=== PATIENT | female | born 1960 | race Caucasian/White ===

== ENCOUNTER 2018-04-08 23:46 | Emergency (ER) | payer SELFPAY ==
[2018-04-09] MEDS ORDERED: ONDANSETRON 4 MG/2 ML VIAL ONE (00:11)
[2018-04-09] MEDS ORDERED: KETOROLAC 30 MG/ML INJ ONE (00:11)
[2018-04-09] MEDS ORDERED: NA CHLORIDE 0.9% 0 ML ONE (00:11)
[2018-04-09 00:30] LABS: Absolute Lymphocytes (CBC) 5.4 K/uL (0.7-4.9); Absolute Monocytes 0.6 K/uL (0.1-1.3); Absolute Neutrophil 5.7 K/uL (1.8-8.0); Basophils % 0.6 % (0-1.3); Eosinophils % 0.9 % (0-4.4); Hematocrit 42.7 % (36.0-45.0); Lymphocytes % 45.8 % (15.3-44.8); MCH 29.8 pg (27.0-35.0); MCV 86.5 fL (80-100); MPV 10.2 fL (7.6-11.3); Monocytes % 4.9 % (3.3-12.3); RBC Red Blood Cell Count 4.94 M/uL (3.86-4.86)
[2018-04-09 00:44] LABS: Urine Blood 3+ (NEG); Urine Glucose NEGATIVE (NEG); Urine Protein 2+ (NEG); Urine Specific Gravity >1.030 (1.005-1.030); Urine pH 5.5 (5.0-7.0)
[2018-04-09 00:45] LABS: Potassium 3.9 mmol/L (3.5-5.1)
[2018-04-09] MEDS ORDERED: NA CHLORIDE 0.9% 2,000 ML ONE (01:54)
--- NOTE | 2018-04-09 03:08 | EDPHYS ---
Physician Documentation [facility] Name: Gamaliel Myers Age: 57 yrs Sex: Female : 1960 Arrival Date: 04/08/2018 Time: 23:52 Bed 23 Private MD: ED Physician Altaf Reyes HPI: 04/09 00:21 This 57 yrs old Female presents to ER via Ambulatory with complaints of Blood ps1 in urine,nausea,abd pain. 00:21 patient complaining of right flank pain, dysuria, dark colored urine and palpitations. ps1 Decreased oral intake. possible fever. Now urine has blood in it. Pain rated as moderate. No remitting or exacerbating factors. . Historical: - Allergies: 00:13 No Known Allergies; ak1 - Home Meds: 00:13 amlodipine 5 mg tab 1 tab once daily [Active]; buspirone 10 mg Oral tab 1 tab 2 times ak1 per day [Active]; Fish Oil 1,000 mg oral cap [Active]; fluoxetine 20 mg Oral cap 1 cap once daily [Active]; glimepiride 4 mg Oral tab 1 tab 2 times daily [Active]; hydroxyzine HCl 25 mg Oral tab 1 tab 4 times per day [Active]; Lantus 100 unit/mL Sub-Q soln [Active]; levothyroxine 112 mcg tab 1 tab once daily [Active]; lisinopril 20 mg Oral tab 1 tab once daily [Active]; metformin 1,000 mg Oral tr24 2 tabs once daily [Active]; pravastatin 20 mg oral tab 1 tab once daily [Active]; zolpidem 5 mg Oral tab 1 tab once daily [Active]; - PMHx: 00:13 Hypertension; Hyperlipidemia; Anxiety; Hypothyroidism; insomnia; ak1 - PSHx: 00:13 Hysterectomy; Cholecystectomy; Hernia repair; Knee surgery; bilateral thumb sx; heart ak1 cath; - Immunization history:: Adult Immunizations unknown. - Social history:: Smoking status: Patient/guardian denies using tobacco. - Ebola Screening: : No symptoms or risks identified at this time. ROS: 00:21 Positive for urinary symptoms, flank pain, hematuria. ps1 00:21 Eyes: Negative for injury, pain, redness, and discharge, ENT: Negative for injury, pain, and discharge, Respiratory: Negative for shortness of breath, cough, wheezing, and pleuritic chest pain, Abdomen/GI: Negative for abdominal pain, nausea, vomiting, diarrhea, and constipation, Back: Negative for injury and pain, MS/Extremity: Negative for injury and deformity, Skin: Negative for injury, rash, and discoloration. 00:21 Constitutional: Positive for fever, malaise. 00:21 Cardiovascular: Positive for palpitations. Exam: 00:21 Constitutional: This is a well developed, well nourished patient who is awake, alert, ps1 and in no acute distress. Head/Face: Normocephalic, atraumatic. 00:21 ENT: Nares patent. No nasal discharge, no septal abnormalities noted. Tympanic membranes are normal and external auditory canals are clear. Oropharynx with no redness, swelling, or masses, exudates, or evidence of obstruction, uvula midline. Mucous membranes moist. Neck: Trachea midline, no thyromegaly or masses palpated, and no cervical lymphadenopathy. Supple, full range of motion without nuchal rigidity, or vertebral point tenderness. No Meningismus. Chest/axilla: Normal chest wall appearance and motion. Nontender with no deformity. No lesions are appreciated. Respiratory: Lungs have equal breath sounds bilaterally, clear to auscultation and percussion. No rales, rhonchi or wheezes noted. No increased work of breathing, no retractions or nasal flaring. Abdomen/GI: Soft, non-tender, with normal bowel sounds. No distension or tympany. No guarding or rebound. No evidence of tenderness throughout. 00:21 Cardiovascular: Rate: tachycardic, Rhythm: regular, Pulses: no pulse deficits are appreciated. Vital Signs: 00:04 BP 157 / 120; Pulse 124; Resp 20; Temp 98.2(TE); Pulse Ox 97% on R/A; Weight 108.86 kg ak1 (R); Height 5 ft. 5 in. (165.10 cm) (R); Pain 8/10; 01:07 BP 121 / 65; Pulse 93; Resp 18; Pulse Ox 98% on R/A; Pain 2/10; mg2 02:11 BP 122 / 56; Pulse 89; Resp 18; Pulse Ox 95% on R/A; Pain 0/10; mg2 03:38 BP 130 / 60; Pulse 80; Resp 18; Temp 97.8(O); Pulse Ox 99% on R/A; Pain 0/10; ea 00:04 Body Mass Index 39.94 (108.86 kg, 165.10 cm) ak1 MDM: 00:19 Patient medically screened. ps1 03:10 Data reviewed: vital signs, nurses notes, lab test result(s), radiologic studies, CT ps1 scan, and as a result, I will discharge patient. Test interpretation: by ED physician or midlevel provider: CT scan, recently passed stone. . 04/09 00:03 Order name: Basic Metabolic Panel; Complete Time: 00:46 ps1 04/09 00:03 Order name: Blood Culture Adult (2) ps1 04/09 00:03 Order name: CBC with Diff; Complete Time: 00:40 ps1 04/09 00:03 Order name: Lactate; Complete Time: 00:58 ps1 04/09 00:03 Order name: Lipase; Complete Time: 00:46 ps1 04/09 00:03 Order name: Troponin (emerg Dept Use Only); Complete Time: 00:58 ps1 04/09 00:03 Order name: Chest Single View XRAY ps1 04/09 00:03 Order name: Stone Protocol CT ps1 04/09 00:25 Order name: Urine Dipstick--Ancillary (enter results) ms 07 00:25 Order name: Urine Dipstick-Ancillary; Complete Time: 00:45 EDMS 04/09 00:03 Order name: Accucheck; Complete Time: 00:19 ps1 04/09 00:03 Order name: Cardiac monitoring; Complete Time: 00:19 ps1 04/09 00:03 Order name: EKG - Nurse/Tech; Complete Time: 00:19 ps1 04/09 00:03 Order name: IV Saline Lock - Large Bore; Complete Time: 00:18 ps1 04/09 00:03 Order name: Labs collected and sent; Complete Time: 00:18 ps1 04/09 00:03 Order name: O2 Per Protocol; Complete Time: 00:18 ps1 04/09 00:03 Order name: O2 Sat Monitoring; Complete Time: 00:19 ps1 04/09 00:03 Order name: Urine Dipstick-Ancillary (obtain specimen); Complete Time: 00:19 ps1 04/09 00:04 Order name: EKG Strip; Complete Time: 00:20 ps1 EC:11 Rate is 110 beats/min. Rhythm is regular. HI interval is normal. QRS interval is ps1 normal. QT interval is normal. No Q waves. T waves are Normal. No ST changes noted. Clinical impression: Sinus tachycardia and right axis deviation. Interpreted by me. Administered Medications: 00:19 Drug: NS 0.9% (30 ml/kg) 30 ml/kg Route: IV; Rate: bolus; Site: left antecubital; mg2 00:20 Drug: TORadol 30 mg Route: IVP; Site: left antecubital; mg2 01:19 Follow up: Response: No adverse reaction; Pain is decreased mg2 00:20 Not Given (Physician Discretion): Zofran 4 mg PO once mg2 00:21 Drug: Zofran 4 mg Route: IVP; Site: left antecubital; mg2 01:19 Follow up: Response: No adverse reaction; Nausea is decreased mg2 Point of Care Testing: Blood Glucose: 00:30 Blood Glucose: 98 mg/dL; mg2 Ranges: Critical Glucose Levels:Adult <50 mg/dl or >400 mg/dl <40 mg/dl or >180 mg/dl Disposition: 04/09/18 03:07 Discharged to Home. Impression: Renal Stone. , hematuria, hydronephrosis. - Condition is Stable. - Discharge Instructions: Hematuria, Adult, Kidney Stones. - Prescriptions for ketorolac 10 mg Oral tablet - take 1 tablet by ORAL route every 4-6 hours not to exceed 40 mg in 24hrs; 10 tablet. Zofran 4 mg Oral Tablet - take 1 tablet by ORAL route every 12 hours As needed; 20 tablet. - Medication Reconciliation Form, Thank You Letter, Antibiotic Education, Prescription Opioid Use form. - Follow up: Private Physician; When: As needed; Reason: Recheck today's complaints, Continuance of care, Re-evaluation by your physician. Follow up: Josee Munoz MD; When: As needed; Reason: Further diagnostic work-up. Signatures: Dispatcher [employer] EDMary Carmen Soto RN RN ak1 Kaylen Richards RN RN ea Altaf Reyes MD MD ps1 Cresencio Morris RN RN mg2 Corrections: (The following items were deleted from the chart) 03:41 03:07 04/09/2018 03:07 Discharged to Home. Impression: Renal Stone. ; hematuria; ea hydronephrosis. Condition is Stable. Forms are Medication Reconciliation Form, Thank You Letter, Antibiotic Education, Prescription Opioid Use. Follow up: Private Physician; When: As needed; Reason: Recheck today's complaints, Continuance of care, Re-evaluation by your physician. Follow up: Josee Munoz; When: As needed; Reason: Further diagnostic work-up. ps1
--- NOTE | 2018-04-09 03:08 | ER ---
Nurse's Notes [facility] Name: Gamaliel Myers Age: 57 yrs Sex: Female : 1960 Arrival Date: 04/08/2018 Time: 23:52 Bed 23 Private MD: Diagnosis: Renal Stone. ;hematuria;hydronephrosis Presentation: 04/09 00:06 Presenting complaint: Patient states: back pain, abd pain, nausea and blood in urine X2 ak1 days. Transition of care: patient was not received from another setting of care. Onset of symptoms is unknown. Risk Assessment: Do you want to hurt yourself or someone else? Patient reports no desire to harm self or others. Initial Sepsis Screen: Does the patient meet any 2 criteria? Systolic BP < 90 mmHg. HR > 90 bpm. Yes Does the patient have a suspected source of infection? Yes: Dysuria/Frequency/Urgency/UTI. Care prior to arrival: None. 00:06 Method Of Arrival: Ambulatory ak1 00:06 Acuity: DEVENDRA 3 ak1 Triage Assessment: 00:13 General: Appears in no apparent distress. Behavior is calm, cooperative. Pain: ak1 Complains of pain in back and abdomen. Historical: - Allergies: 00:13 No Known Allergies; ak1 - Home Meds: 00:13 amlodipine 5 mg tab 1 tab once daily [Active]; buspirone 10 mg Oral tab 1 tab 2 times ak1 per day [Active]; Fish Oil 1,000 mg oral cap [Active]; fluoxetine 20 mg Oral cap 1 cap once daily [Active]; glimepiride 4 mg Oral tab 1 tab 2 times daily [Active]; hydroxyzine HCl 25 mg Oral tab 1 tab 4 times per day [Active]; Lantus 100 unit/mL Sub-Q soln [Active]; levothyroxine 112 mcg tab 1 tab once daily [Active]; lisinopril 20 mg Oral tab 1 tab once daily [Active]; metformin 1,000 mg Oral tr24 2 tabs once daily [Active]; pravastatin 20 mg oral tab 1 tab once daily [Active]; zolpidem 5 mg Oral tab 1 tab once daily [Active]; - PMHx: 00:13 Hypertension; Hyperlipidemia; Anxiety; Hypothyroidism; insomnia; ak1 - PSHx: 00:13 Hysterectomy; Cholecystectomy; Hernia repair; Knee surgery; bilateral thumb sx; heart ak1 cath; - Immunization history:: Adult Immunizations unknown. - Social history:: Smoking status: Patient/guardian denies using tobacco. - Ebola Screening: : No symptoms or risks identified at this time. Screenin:23 Abuse screen: Denies threats or abuse. Denies injuries from another. Nutritional mg2 screening: No deficits noted. Tuberculosis screening: No symptoms or risk factors identified. Fall Risk IV access (20 points). Assessment: 01:24 General: Appears in no apparent distress. comfortable, Behavior is calm, cooperative. mg2 01:25 Pain: Complains of pain in abdomen and back Pain does not radiate. Pain currently is 2 mg2 out of 10 on a pain scale. Quality of pain is described as aching, Pain began gradually, Is intermittent, Alleviated by rest, Also complains of bloody urine. Neuro: Level of Consciousness is awake, alert, obeys commands, Oriented to person, place, time, situation. Cardiovascular: Capillary refill < 3 seconds Patient's skin is warm and dry. Respiratory: Airway is patent Respiratory effort is even, unlabored, Respiratory pattern is regular, symmetrical. GI: Abdomen is non-distended, Reports lower abdominal pain, nausea. : Reports bloody urine. EENT: No signs and/or symptoms were reported regarding the EENT system. Derm: Skin is intact, Skin is pink, warm \T\ dry. normal. Musculoskeletal: Circulation, motion, and sensation intact. 02:11 Reassessment: Patient appears in no apparent distress at this time. Patient and/or mg2 family updated on plan of care and expected duration. Pain level reassessed. Patient is alert, oriented x 3, equal unlabored respirations, skin warm/dry/pink. 03:40 Reassessment: Patient and/or family updated on plan of care and expected duration. Pain ea level reassessed. Patient is alert, oriented x 3, equal unlabored respirations, skin warm/dry/pink. Discharge instructions given to patient, verbalized the understanding of instruction. Vital Signs: 00:04 BP 157 / 120; Pulse 124; Resp 20; Temp 98.2(TE); Pulse Ox 97% on R/A; Weight 108.86 kg ak1 (R); Height 5 ft. 5 in. (165.10 cm) (R); Pain 8/10; 01:07 BP 121 / 65; Pulse 93; Resp 18; Pulse Ox 98% on R/A; Pain 2/10; mg2 02:11 BP 122 / 56; Pulse 89; Resp 18; Pulse Ox 95% on R/A; Pain 0/10; mg2 03:38 BP 130 / 60; Pulse 80; Resp 18; Temp 97.8(O); Pulse Ox 99% on R/A; Pain 0/10; ea 00:04 Body Mass Index 39.94 (108.86 kg, 165.10 cm) ak1 ED Course: 04/08 23:52 Patient arrived in ED. es 23:59 Altaf Reyes MD is Attending Physician. ps1 04/09 00:04 Arm band placed on Patient placed in an exam room, on a stretcher, Patient notified of ak1 wait time. 00:06 Kathe Walker, VEE is Primary Nurse. kr2 00:07 Triage completed. ak1 00:[address] In Process Unspecified. EDMS 00:52 X-ray completed. Portable x-ray completed in exam room. Patient tolerated procedure kw well. 00:53 Chest Single View XRAY In Process Unspecified. EDMS 00:53 Notified ED physician of a critical lab result(s). lactic acid 2.3. ak1 00:54 CT completed. Patient tolerated procedure well. Patient moved to CT via stretcher. Patient moved back from CT. 01:23 Patient has correct armband on for positive identification. Bed in low position. Side mg2 rails up X2. Door closed. Warm blanket given. 01:28 No provider procedures requiring assistance completed. Inserted saline lock: 20 gauge mg2 in left antecubital area, using aseptic technique. Blood collected. 02:59 Josee uMnoz MD is Referral Physician. ps1 03:07 IV discontinued, intact, bleeding controlled, No redness/swelling at site. Pressure mg2 dressing applied. Administered Medications: 00:19 Drug: NS 0.9% (30 ml/kg) 30 ml/kg Route: IV; Rate: bolus; Site: left antecubital; mg2 00:20 Drug: TORadol 30 mg Route: IVP; Site: left antecubital; mg2 01:19 Follow up: Response: No adverse reaction; Pain is decreased mg2 00:20 Not Given (Physician Discretion): Zofran 4 mg PO once mg2 00:21 Drug: Zofran 4 mg Route: IVP; Site: left antecubital; mg2 01:19 Follow up: Response: No adverse reaction; Nausea is decreased mg2 Point of Care Testing: Blood Glucose: 00:30 Blood Glucose: 98 mg/dL; mg2 Ranges: Outcome: 03:07 Discharge ordered by . ps1 03:39 Discharged to home ambulatory. ea 03:39 Condition: improved 03:39 Discharge instructions given to patient, Instructed on discharge instructions, follow up and referral plans. medication usage, Demonstrated understanding of instructions, follow-up care, medications, Prescriptions given X 2. 03:41 Patient left the ED. ea Signatures: Dispatcher [employer] EDMS Sharyn White Ervin eh Whitley, Kimberlee kw Krenek, Amber RN RN ak1 Kaylen Richards RN RN Kathe Germain RN RN [email or web address] Altaf Reyes MD MD ps1 Gardose, Michele, RN RN mg2 Corrections: (The following items were deleted from the chart) 01:25 01:24 Pain: mg2 mg2 01:28 01:24 Pain: Pain: mg2 mg2
--- NOTE | 2018-04-09 08:30 | RAD REPORT ---
EXAM DESCRIPTION: CT - Stone Protocol - 04/09/2018 4:39 am CLINICAL HISTORY: Flank pain. right flank;Abd pain COMPARISON: No comparisons TECHNIQUE: Axial images were obtained without oral or IV contrast. Lack of contrast limits solid org an and vascular assessment. The [id number] spans the entirety of the system partially obscuring uppermost abdomen and lung bases. Coronal reformatted images were obtained and reviewed. All CT scans are performed using dose optimization technique as appropriate and may include automated exposure control or mA/KV adjustment according to patient size. FINDINGS: The lower lung guerrero are clear. Imaged portions of the liver and spleen show no suspicious findings on non-contrast imaging.Cholecyst ectomy. The pancreas is unremarkable. 18 mm left adrenal adenoma suspected. The right adrenal gland i s normal. No pathologic lymphadenopathy in the abdomen or pelvis. Two abutting stones are noted in the left renal pelvis measuring 6 mm and 5 mm. Mild left hydronephro sis with several parapelvic cysts also likely present on the left. No right-sided stone or hydronephr osis. Right-sided parapelvic renal cysts also suspected. No bowel obstruction, free air, free fluid or abscess. Normal appendix noted.Several small ventral he rnias are present. The inferior-most hernia contains a small section of small intestine without obstr uction or incarceration. Scattered colonic diverticulosis. No significant bony abnormality. IMPRESSION: Left renal pelvis stones are present as detailed resulting in mild left hydronephrosis.
--- NOTE | 2018-04-09 08:32 | RAD REPORT ---
EXAM DESCRIPTION: RAD - Chest Single View - 04/09/2018 12:54 am CLINICAL HISTORY: tachycardia sepsis screen Chest pain. COMPARISON: No comparisons FINDINGS: Portable technique limits examination quality. The lungs are grossly clear. The heart is normal in size. No displaced fractures. IMPRESSION: No acute intrathoracic process suspected.
--- NOTE | 2018-04-09 12:08 | EKG ---
Test Date: 2018-04-09 Test Time: 00:11:05 Penology Professor: ZAIDA MEASUREMENT RESULTS: Intervals: Rate: 110 WY: 168 QRSD: 80 QT: 330 QTc: 446 [place]: P: 39 WY: 168 QRS: 178 T: 27 INTERPRETIVE STATEMENTS: Sinus tachycardia Right axis deviation Low voltage QRS Septal infarct, age undetermined Abnormal ECG No previous ECG available for comparison Electronically Signed On 04-09-18 12:08:00 CDT by Jacob Martinez
== END 2018-04-09 03:41 | disposition home or self-care (01) ==
LOC: ER 23:46
DX: N13.2 Hydronephrosis with renal and ureteral calculous obstruction (principal); I10 Essential (primary) hypertension; E78.5 Hyperlipidemia, unspecified; F41.9 Anxiety disorder, unspecified; E03.9 Hypothyroidism, unspecified
CPT/HCPCS: 36415; 71045; 74176; 76377; 80048; 81003; 82962; 83605; 83690; 84484; 85025; 87040; 93005; 96374; 96375; 99284; J2405; J7030

== ENCOUNTER 2018-10-04 07:33 | Observation (INO) | payer SELFPAY ==
[2018-10-04] MEDS ORDERED: ONDANSETRON 4 MG/2 ML VIAL ONE ×2 (08:42→09:43)
[2018-10-04] MEDS ORDERED: KETOROLAC 30 MG/ML INJ ONE (08:42)
[2018-10-04 08:44] LABS: Absolute Monocytes 0.4 K/uL (0.1-1.3); Absolute Neutrophil 5.5 K/uL (1.8-8.0); Basophils % 2.1 % (0-1.3); Lymphocytes % 24.8 % (15.3-44.8); MPV 10.8 fL (7.6-11.3); Monocytes % 5.4 % (3.3-12.3); RBC Red Blood Cell Count 4.86 M/uL (3.86-4.86)
[2018-10-04 08:59] LABS: Albumin 3.5 g/dL (3.4-5.0); Bilirubin Direct 0.1 mg/dL (0-0.2); Bilirubin Total 0.4 mg/dL (0.2-1.0); Potassium 3.8 mmol/L (3.5-5.1); Protein, Total 6.9 g/dL (6.4-8.2)
[2018-10-04] MEDS ORDERED: MORPHINE 4 MG/ML SYR ONE (09:43)
--- NOTE | 2018-10-04 09:44 | RAD REPORT ---
EXAM DESCRIPTION: CT - Abdomen Pelvis W Contrast - 10/04/2018 9:25 am CLINICAL HISTORY: Abdominal pain left-sided pain. COMPARISON: March 2018 TECHNIQUE: Computed axial tomography of the abdomen pelvis was obtained. 100 cc Isovue-300 was admin istered intravenously. Oral contrast was not requested which limits evaluation of bowel. All CT scans are performed using dose optimization technique as appropriate and may include automated exposure control or mA/KV adjustment according to patient size. FINDINGS: Fatty liver . Spleen, pancreas and right adrenal gland are unremarkable A 20 millimeter left adrenal adenoma unchanged 12 millimeter calculus is present within the left UPJ with stranding in the adjacent fat. Hounsfield unit of the calculus 371. Mild left hydronephrosis. Tiny additional left renal calculus. Small parape lvic renal cysts bilaterally Appendix is normal. There is no evidence of diverticulitis. A umbilical hernia contains a loop of nondilated small bowel. Neck measures 34 millimeters. Additiona l small ventral hernias noted IMPRESSION: 12 millimeter calculus left UPJ resulting in mild left hydronephrosis
[2018-10-04 09:47] LABS: Urine Bacteria 20-50 /HPF (<20); Urine Culture Reflex Order NOT NEEDED
--- NOTE | 2018-10-04 10:05 | EDPHYS ---
Physician Documentation [facility] Name: Gamaliel Myers Age: 58 yrs Sex: Female : 1960 Arrival Date: 10/04/2018 Time: 07:37 Bed 7 Private MD: None, None ED Physician Cayetano Clark HPI: 10/04 08:30 This 58 yrs old Female presents to ER via Wheelchair with complaints of jr8 Abdominal Pain, Back Pain. 08:30 The patient presents with pain that is acute, with no known mechanism of injury. The jr8 symptoms are located in the low back. Onset: The symptoms/episode began/occurred gradually, 1 month(s) ago, and became worse and became persistent. The pain radiates to the abdomen. Associated signs and symptoms: Pertinent positives: nausea. The problem was sustained from unknown cause. Modifying factors: The patient symptoms are alleviated by nothing, the patient symptoms are aggravated by bending. Severity of symptoms: At their worst the symptoms were mild, in the emergency department the symptoms are unchanged. The patient has not experienced similar symptoms in the past. The patient has not recently seen a physician. Has had intermittent back pain and left side and abdominal pain for past month. Now consistent over the past few days . Historical: - Allergies: 08:09 No Known Allergies; iw - Home Meds: 08:09 amlodipine 5 mg tab 1 tab once daily [Active]; Fish Oil 1,000 mg Oral cap daily iw [Active]; fluoxetine 20 mg Oral cap 1 cap once daily [Active]; garlic 1,000 mg oral cap daily [Active]; glimepiride 4 mg Oral tab twice a day [Active]; hydroxyzine HCl 25 mg Oral tab 4 times per day [Active]; lisinopril 20 mg Oral tab 1 tab once daily [Active]; metformin 1,000 mg Oral tab 1 tab 2 times per day [Active]; Vitamin D3 1,000 unit oral tab daily [Active]; zolpidem 5 mg Oral tab 1 tab once daily [Active]; 08:11 levothyroxine 112 mcg tab 1 tab once daily [Active]; iw - PMHx: 08:09 Anxiety; Hyperlipidemia; Hypertension; Hypothyroidism; insomnia; iw 09:58 Diabetes - NIDDM; bp - PSHx: 08:09 Hysterectomy; Cholecystectomy; Hernia repair; Knee surgery; bilateral thumb sx; heart iw cath; - Immunization history:: Adult Immunizations up to date. - Social history:: Smoking status: Patient/guardian denies using tobacco, the patient reports quitting approximately 10 years ago. - Ebola Screening: : Patient negative for fever greater than or equal to 101.5 degrees Fahrenheit, and additional compatible Ebola Virus Disease symptoms Patient denies exposure to infectious person Patient denies travel to an Ebola-affected area in the 21 days before illness onset No symptoms or risks identified at this time. ROS: 08:30 Eyes: Negative for injury, pain, redness, and discharge, ENT: Negative for injury, jr8 pain, and discharge, Neck: Negative for injury, pain, and swelling, Cardiovascular: Negative for chest pain, palpitations, and edema, Respiratory: Negative for shortness of breath, cough, wheezing, and pleuritic chest pain, MS/Extremity: Negative for injury and deformity, Skin: Negative for injury, rash, and discoloration, Neuro: Negative for headache, weakness, numbness, tingling, and seizure. 08:30 Abdomen/GI: Positive for abdominal pain, nausea, diarrhea, Negative for vomiting, abdominal cramps, abdominal distension, anorexia, dysphagia, hematemesis, black/tarry stool, rectal pain, rectal bleeding, bowel incontinence, flatulence. 08:30 Back: Positive for pain at rest, pain with movement, of the left flank, left low back and left mid back. Exam: 08:30 Eyes: Pupils equal round and reactive to light, extra-ocular motions intact. Lids and jr8 lashes normal. Conjunctiva and sclera are non-icteric and not injected. Cornea within normal limits. Periorbital areas with no swelling, redness, or edema. ENT: Nares patent. No nasal discharge, no septal abnormalities noted. Tympanic membranes are normal and external auditory canals are clear. Oropharynx with no redness, swelling, or masses, exudates, or evidence of obstruction, uvula midline. Mucous membranes moist. Neck: Trachea midline, no thyromegaly or masses palpated, and no cervical lymphadenopathy. Supple, full range of motion without nuchal rigidity, or vertebral point tenderness. No Meningismus. Cardiovascular: Regular rate and rhythm with a normal S1 and S2. No gallops, murmurs, or rubs. Normal PMI, no JVD. No pulse deficits. Respiratory: Lungs have equal breath sounds bilaterally, clear to auscultation and percussion. No rales, rhonchi or wheezes noted. No increased work of breathing, no retractions or nasal flaring. Skin: Warm, dry with normal turgor. Normal color with no rashes, no lesions, and no evidence of cellulitis. MS/ Extremity: Pulses equal, no cyanosis. Neurovascular intact. Full, normal range of motion. Neuro: Awake and alert, GCS 15, oriented to person, place, time, and situation. Cranial nerves II-XII grossly intact. Motor strength 5/5 in all extremities. Sensory grossly intact. Cerebellar exam normal. Normal gait. 08:30 Abdomen/GI: Inspection: obese scar(s), are noted in the , Bowel sounds: active, all quadrants, Palpation: soft, in all quadrants, mild abdominal tenderness, in the anterior aspect of left lateral abdomen and left lower quadrant, mass, is not appreciated, rebound tenderness, is not appreciated, voluntary guarding, is not appreciated, involuntary guarding, is not appreciated, no appreciated organomegaly, Indicators: McBurney's point is not tender, Noel's sign is negative, Rovsing's sign is negative, Liver: tenderness, is not appreciated. 08:30 Back: pain, that is mild, of the left low back and left mid back, ROM is painful, normal spinal alignment noted, CVA tenderness, is absent, vertebral tenderness, is not appreciated. Vital Signs: 08:10 BP 157 / 83; Pulse 109; Resp 16; Temp 98; Pulse Ox 95% ; Weight 108.86 kg; Height 5 ft. bp 5 in. (165.10 cm); 08:24 BP 145 / 56; Pulse 96; Resp 14; Pulse Ox 94% ; bp 09:39 BP 149 / 86; Pulse 123; Resp 16; Pulse Ox 95% ; bp 10:24 BP 148 / 73; Pulse 116; Resp 16; Pulse Ox 93% ; bp 11:22 BP 128 / 95; Pulse 104; Resp 18; Pulse Ox 92% ; bp 12:21 BP 118 / 64; Pulse 98; Resp 18; Pulse Ox 93% ; bp 08:10 Body Mass Index 39.94 (108.86 kg, 165.10 cm) bp MDM: 07:48 Patient medically screened. [facility] 10:02 Data reviewed: vital signs, nurses notes, lab test result(s), EKG, radiologic studies, [facility] CT scan, plain films, and as a result, I will admit patient. Data interpreted: Pulse oximetry: on room air is 95 %. Interpretation: acceptable. Counseling: I had a detailed discussion with the patient and/or guardian regarding: the historical points, exam findings, and any diagnostic results supporting the discharge/admit diagnosis, lab results, radiology results, the need for further work-up and treatment in the hospital. ED course: Dr. Munoz consulted and will see patient for stent placement. Wants patient admitted for observation to hospitalist . 10/04 08:10 Order name: Basic Metabolic Panel; Complete Time: 09:05 10/04 08:10 Order name: CBC with Diff; Complete Time: 08:52 10/04 08:10 Order name: Creatinine for Radiology; Complete Time: 09:05 10/04 08:10 Order name: Hepatic Function; Complete Time: 09:05 10/04 08:10 Order name: Lipase; Complete Time: 09:05 10/04 09:12 Order name: Urine Microscopic Only; Complete Time: 09:49 1 10/04 09:05 Order name: CT Abd/Pelvis - W/Contrast; Complete Time: 09:49 10/04 09:12 Order name: Urine Culture 1 10/04 09:20 Order name: Urine Dipstick--Ancillary (enter results); Complete Time: 11:01 ag 10/04 09:53 Order name: XRAY Abdomen 1 View (KUB); Complete Time: 11:11 10/04 09:59 Order name: XRAY Chest (1 view); Complete Time: 11:11 10/04 12:03 Order name: Uric Acid ag 10/04 12:20 Order name: Uric Acid; Complete Time: 12:34 EDMS 10/04 08:10 Order name: IV Saline Lock; Complete Time: 08:23 10/04 08:10 Order name: Labs collected and sent; Complete Time: 08:23 10/04 08:10 Order name: Urine Dipstick-Ancillary (obtain specimen); Complete Time: 09:13 10/04 09:59 Order name: EKG - Nurse/Tech; Complete Time: 10:12 10/04 09:59 Order name: EKG; Complete Time: 10:00 jr8 10/04 10:54 Order name: CONS Physician Consult EDMS Administered Medications: 08:15 Drug: TORadol 30 mg Route: IVP; Site: left antecubital; bp 09:05 Follow up: Response: Pain is decreased bp 08:15 Drug: Zofran 4 mg Route: IVP; Site: left antecubital; bp 09:05 Follow up: Response: Nausea is decreased bp 09:40 Drug: morphine 4 mg Route: IVP; Site: left antecubital; bp 09:55 Follow up: Response: Pain is decreased bp 09:40 Drug: Zofran 4 mg Route: IVP; Site: left antecubital; bp 09:55 Follow up: Response: Nausea is decreased bp 10:15 Drug: Rocephin 1 grams Route: IV; Rate: calculated rate; Site: left antecubital; bp 11:00 Follow up: IV Status: Completed infusion; IV Intake: 10ml bp 10:15 Drug: NS 0.9% 500 ml Route: IV; Rate: bolus; Site: left antecubital; bp 11:00 Follow up: IV Status: Completed infusion bp Disposition: 10/04/18 10:03 Hospitalization ordered by Hayder Guardado for Observation. Preliminary diagnosis is Hydronephrosis with renal and ureteral calculous obstruction. - Bed requested for Telemetry/MedSurg (observation). - Status is Observation. bp - Condition is Stable. - Problem is new. - Symptoms have improved. UTI on Admission? Yes Addendum: 10/08/2018 08:05 Co-signature as Attending Physician, Cayetano Clark MD I agree with the assessment and c garay plan of care. Signatures: Dispatcher [employer] EDDC Cayetano Clark MD MD cha Williams, Irene, RN RN Travon Covington PA PA jr8 Teena Urbina Brian, VEE RN bp Corrections: (The following items were deleted from the chart) 10/04 12:41 10:03 Hospitalization Ordered by Hayder Guardado MD for Observation. Preliminary diagnosis ag is Hydronephrosis with renal and ureteral calculous obstruction. Bed requested for Telemetry/MedSurg (observation). Status is Observation. Condition is Stable. Problem is new. Symptoms have improved. UTI on Admission? Yes. jr8 13:06 12:41 10/04/2018 10:03 Hospitalization Ordered by Hayder Guardado MD for Observation. bp Preliminary diagnosis is Hydronephrosis with renal and ureteral calculous obstruction. Bed requested for Telemetry/MedSurg (observation). Status is Observation. Condition is Stable. Problem is new. Symptoms have improved. UTI on Admission? Yes. ag
--- NOTE | 2018-10-04 10:05 | ER ---
Nurse's Notes [facility] Name: Gamaliel Myers Age: 58 yrs Sex: Female : 1960 Arrival Date: 10/04/2018 Time: 07:37 Bed 7 Private MD: None, None Diagnosis: Hydronephrosis with renal and ureteral calculous obstruction Presentation: 10/04 08:00 Presenting complaint: Patient states: pain radiating from left upper/mid back to iw buttocks, radiates around to left abd area X 1 month, made pain worse a couple days ago after tackling her dog. Transition of care: patient was not received from another setting of care. Onset of symptoms was August 2018. Risk Assessment: Do you want to hurt yourself or someone else? Patient reports no desire to harm self or others. Initial Sepsis Screen: Does the patient meet any 2 criteria? No. Patient's initial sepsis screen is negative. Does the patient have a suspected source of infection? No. Patient's initial sepsis screen is negative. Care prior to arrival: None. 08:00 Method Of Arrival: Wheelchair iw 08:00 Acuity: DEVENDRA 3 iw Triage Assessment: 08:10 General: Appears in no apparent distress. uncomfortable, obese, Behavior is bp cooperative, appropriate for age, anxious. Pain: Complains of pain in left mid back and left low back and left flank. EENT: No deficits noted. Neuro: Level of Consciousness is awake, alert, obeys commands, Oriented to person, place, time, situation, Appropriate for age. Cardiovascular: No deficits noted. Respiratory: Airway is patent Respiratory effort is even, unlabored, Respiratory pattern is regular, symmetrical. GI: Abdomen is non-distended, Reports nausea. : Reports pain in left flank(s). Derm: No deficits noted. Musculoskeletal: Circulation, motion, and sensation intact. Range of motion: intact in all extremities. Historical: - Allergies: 08:09 No Known Allergies; iw - Home Meds: 08: amlodipine 5 mg tab 1 tab once daily [Active]; Fish Oil 1,000 mg Oral cap daily iw [Active]; fluoxetine 20 mg Oral cap 1 cap once daily [Active]; garlic 1,000 mg oral cap daily [Active]; glimepiride 4 mg Oral tab twice a day [Active]; hydroxyzine HCl 25 mg Oral tab 4 times per day [Active]; lisinopril 20 mg Oral tab 1 tab once daily [Active]; metformin 1,000 mg Oral tab 1 tab 2 times per day [Active]; Vitamin D3 1,000 unit oral tab daily [Active]; zolpidem 5 mg Oral tab 1 tab once daily [Active]; 08:11 levothyroxine 112 mcg tab 1 tab once daily [Active]; iw - PMHx: 08:09 Anxiety; Hyperlipidemia; Hypertension; Hypothyroidism; insomnia; iw 09:58 Diabetes - NIDDM; bp - PSHx: 08:09 Hysterectomy; Cholecystectomy; Hernia repair; Knee surgery; bilateral thumb sx; heart iw cath; - Immunization history:: Adult Immunizations up to date. - Social history:: Smoking status: Patient/guardian denies using tobacco, the patient reports quitting approximately 10 years ago. - Ebola Screening: : Patient negative for fever greater than or equal to 101.5 degrees Fahrenheit, and additional compatible Ebola Virus Disease symptoms Patient denies exposure to infectious person Patient denies travel to an Ebola-affected area in the 21 days before illness onset No symptoms or risks identified at this time. Screenin:40 Abuse screen: Denies threats or abuse. Denies injuries from another. Nutritional bp screening: No deficits noted. Tuberculosis screening: No symptoms or risk factors identified. Fall Risk None identified. Assessment: 08:15 General: SEE TRIAGE NOTE. bp 09:00 GI: Bowel sounds present X 4 quads. Abd is soft X 4 quads. bp 09:41 Reassessment: PT RETURNED FROM CT. PER MD, CT SHOWS 3MM STONE. URO C/S PENDING. bp 10:13 Reassessment: LAST PO INTAKE 2300 LAST PM, PT NOW NPO. PT TO CT WITH SENIOR SALES CONSULTANT. ADMIT IN bp PROCESS. 11:22 Reassessment: ADMIT IN PROCESS, VS STABLE ON MONITOR. bp 12:20 Reassessment: PT SEEN BY URO C/S, OR PENDING. bp 13:04 Reassessment: PT VALERIO TO OR WITH RECOVERY NURSE, CONSENT SIGNED AND WITNESSED WITH DR bp TOLENTINO. Vital Signs: 08:10 BP 157 / 83; Pulse 109; Resp 16; Temp 98; Pulse Ox 95% ; Weight 108.86 kg; Height 5 ft. bp 5 in. (165.10 cm); 08:24 BP 145 / 56; Pulse 96; Resp 14; Pulse Ox 94% ; bp 09:39 BP 149 / 86; Pulse 123; Resp 16; Pulse Ox 95% ; bp 10:24 BP 148 / 73; Pulse 116; Resp 16; Pulse Ox 93% ; bp 11:22 BP 128 / 95; Pulse 104; Resp 18; Pulse Ox 92% ; bp 12:21 BP 118 / 64; Pulse 98; Resp 18; Pulse Ox 93% ; bp 08:10 Body Mass Index 39.94 (108.86 kg, 165.10 cm) bp ED Course: 07:37 Patient arrived in ED. mr 07:38 None, None is Private Physician. mr 07:48 Travon Wen PA is PHCP. jr8 07:48 Cayetano Clark MD is Attending Physician. jr8 07:49 Luis Antonio Peña, VEE is Primary Nurse. bp 08:03 Triage completed. iw 08:10 Initial lab(s) drawn, by me, sent to lab. jb1 08:40 Arm band placed on. EKG completed in triage. Results shown to MD. EKG completed in bp triage. Results shown to MD. 08:40 Patient has correct armband on for positive identification. Bed in low position. Call bp light in reach. Side rails up X2. Adult w/ patient. 08:57 Inserted saline lock: 20 gauge in left antecubital area, using aseptic technique. Blood jb1 collected. 09:12 Urine collected: clean catch specimen, cloudy, [place] colored. jb1 09:25 CT Abd/Pelvis - W/Contrast In Process Unspecified. EDMS 10:03 Hayder Guardado MD is Hospitalizing Provider. jr8 10:17 XRAY Abdomen 1 View (KUB) In Process Unspecified. EDMS 10:17 XRAY Chest (1 view) In Process Unspecified. EDMS 13:05 No provider procedures requiring assistance completed. Patient admitted, IV remains in bp place. Administered Medications: 08:15 Drug: TORadol 30 mg Route: IVP; Site: left antecubital; bp 09:05 Follow up: Response: Pain is decreased bp 08:15 Drug: Zofran 4 mg Route: IVP; Site: left antecubital; bp 09:05 Follow up: Response: Nausea is decreased bp 09:40 Drug: morphine 4 mg Route: IVP; Site: left antecubital; bp 09:55 Follow up: Response: Pain is decreased bp 09:40 Drug: Zofran 4 mg Route: IVP; Site: left antecubital; bp 09:55 Follow up: Response: Nausea is decreased bp 10:15 Drug: Rocephin 1 grams Route: IV; Rate: calculated rate; Site: left antecubital; bp 11:00 Follow up: IV Status: Completed infusion; IV Intake: 10ml bp 10:15 Drug: NS 0.9% 500 ml Route: IV; Rate: bolus; Site: left antecubital; bp 11:00 Follow up: IV Status: Completed infusion bp Intake: 11:00 IV: 10ml; Total: 10ml. bp Outcome: 10:03 Decision to Hospitalize by Provider. gisselle 13:05 Admitted to OR accompanied by nurse, family with patient, via stretcher, room OR, with bp chart. 13:05 Condition: stable 13:05 Instructed on the need for admit. 13:06 Patient left the ED. bp Signatures: Dispatcher [employer] EDMS Mitchell Xiong jb1 Avelina Mcnally mr Rani Cruz, RN RN Travon Covington PA PA jr8 Luis Antonio Peña RN RN bp Corrections: (The following items were deleted from the chart) 08:58 08:10 Inserted saline lock: 20 gauge in left antecubital area, using aseptic technique. jb1 Blood collected. bp
[2018-10-04] MEDS ORDERED: NA CHLORIDE 0.9% 500 ML ONE (10:10)
[2018-10-04] MEDS ORDERED: CEFTRIAXONE 1000 MG/VIAL ONE (10:10)
[2018-10-04 10:56] LABS: Urine Blood 3+ (NEG); Urine Glucose NEGATIVE (NEG); Urine Protein 2+ (NEG); Urine Specific Gravity >1.030 (1.005-1.030); Urine pH 5.5 (5.0-7.0)
--- NOTE | 2018-10-04 11:07 | RAD REPORT ---
EXAM DESCRIPTION: Eddy Single View10/04/2018 10:17 am CLINICAL HISTORY: Abdominal pain COMPARISON: March 2018 FINDINGS: The lungs appear clear of acute infiltrate. The heart is normal size IMPRESSION: No acute abnormalities displayed
--- NOTE | 2018-10-04 11:08 | RAD REPORT ---
EXAM DESCRIPTION: RAD - Abdomen 1 View (KUB) - 10/04/2018 10:18 am CLINICAL HISTORY: Abdomen pain. FINDINGS: The bowel gas pattern is unremarkable. Contrast from a recent CAT scan is present within the genitourinary system. Mild left hydronephrosis 12 millimeter filling defect within the left UPJ represents a calculus
[2018-10-04] MEDS ORDERED: NA CHLORIDE 0.9% 1,000 ML ONE (13:06)
--- NOTE | 2018-10-04 13:54 | CON ---
History Of Present Illness: This is a 58-year-old female, who came to the ER with severe left flank pain. Symptoms began in the lower back, and radiates to the abdomen for about a month or so, but it became worse and persistent. She had some nausea. This is the first episode in her life time of anything that resembles a kidney stone. She normally eats lots of meat. She likes steaks and does not drink much water either. CT scan revealed a 12 mm low Hounsfield units 371 with a 12 mm stone in the left UPJ and mild hydronephrosis. She had a KUB about 40 minutes later showing a high-grade obstruction with a stone outlined in the UPJ area. This is suspicious for uric acid stone. Allergies: NO KNOWN DRUG ALLERGIES. Home Medication: Amlodipine, fish oil, fluoxetine, garlic, glimepiride, hydroxyzine, lisinopril, metformin, vitamin D3 1000 units a day, __, levothyroxine 15 . Past Medical History: Anxiety, hyperlipidemia, hypertension, hypothyroidism, insomnia, noninsulin dependent diabetes mellitus. Past Surgical History: Hysterectomy, cholecystectomy, hernia repair, knee surgery, bilateral thumb surgery, heart catheterization. Immunizations: Up-to-date. Social History: Smoking status, denies smoking. Quit 10 years ago. Review of Systems: As per history, otherwise negative. Does have some abdominal pain, nausea as mentioned above. Physical Examination: General: The patient lying in bed comfortable. is present in the room. Vital Signs: 157/83, pulse 109, respirations 16, temperature 97, pulse ox 95% on room air. Weight 108 kg, height 5 feet 5 inches. Body mass index 39.9. HEENT: Atraumatic, normocephalic. Neck: Supple. Lungs: Clear. Heart: S1-S2. Abdomen: Soft. Nontender. Extremities: Normal range of motion. Diagnostic Data: CT scan results as mentioned above. KUB as mentioned above. Laboratory Data: UA shows pH 5.5, blood 3+. Chem-7; sodium 143, potassium 3.8 , chloride 108, bicarb 26, BUN 12, creatinine 0.8, glucose 168. CBC white count 8.2, H and H 14 and 43, platelet 180. Assessment: A 12 mm stone left ureteropelvic junction in a diabetic lady with severe pain. Stones appear radiolucent. Hounsfield unit is low in the 300s. Urine pH is 5.5, which is suspicious for uric acid stone. The patient will need to have a uric acid level checked on serum. She may be a candidate for allopurinol, possible potassium titrate, low animal protein diet, high volume of water 3-4 L per day. Plan is to do cystoscopy and left retrograde pyelogram , and double-J stent placement and she knows all the general information, alternatives, risks. She is competent and willing to sign her informed consent. JENNA/EMELY Voice ID: [id number] Report ID: [id number] GRETA
[2018-10-04] MEDS ORDERED: PROPOFOL 200 MG/20 ML VIAL IV ONE (13:56)
[2018-10-04] MEDS ORDERED: MIDAZOLAM HCL 2 MG/2 ML INJ ONE (13:56)
[2018-10-04] MEDS ORDERED: FENTANYL CITR 100 MCG/2 ML ONE (13:56)
[2018-10-04] MEDS ORDERED: TRAMADOL HCL 50 MG TAB PO ONE (16:00)
--- NOTE | 2018-10-04 17:01 | OP ---
Surgeon: Josee Munoz MD Preoperative Diagnoses: A 12 mm left ureteropelvic junction stone, most likely uric acid. High-grad e obstruction. Postoperative Diagnosis: A 12 mm left ureteropelvic junction stone, most likely uric acid. Procedure Performed: Cystoscopy and left retrograde stent placement. Anesthesia: General anesthesia with Dr. Dangelo. Ebl: Minimal. Replacement: See record. Path Specimen: None. Complications: None. Drain/stent: A 6 x 26 cm stent placed in the standard fashion with string left to the vagina. Indications: A 58-year-old lady who has been having 1 month pain in the left flank area, came in, wa s diagnosed with a possible uric acid stone, 12 mm stone at the left UPJ with high-grade obstruction and pain. She was given all the general information, alternatives, and risks. The patient is compet ent and willing to sign without any coercion. Procedure In Detail: She was properly identified, taken to the operative suite, placed in a supine l ithotomy position. Area was prepped and draped in the usual sterile fashion. We entered the bladder with a 30-degree lens and scope. We scoped the entire bladder. No lesions were seen. Both orifice s were in their normal anatomical position. Left retrograde pyelogram was performed showing pristine ureter up to the UPJ where contrast was still seen on the left side with a dense nephrogram on that side. We measured the ureter, it was 26 cm, went ahead and place a 6-Finnish x 26 cm stent in the lef t ureter with good flow of urine seen coming through the stent once the wire was removed, stent place ment was done in the standard fashion. We then drained the bladder and cut the string distally to th e urethra and placed it in the vagina to be removed at a future date. She most likely has uric acid stone. I have written prescriptions for Urocit-K and pain medication, and anticholinergic to help he r with the stent. Follow up in about a month to see if stone is dissolved. JENNA/EMELY Voice ID: [id number] Report ID: [id number]
--- NOTE | 2018-10-05 13:32 | EKG ---
Test Date: 2018-10-04 Test Time: 10:06:07 Assembler Unit: WARD MEASUREMENT RESULTS: Intervals: Rate: 110 CA: 166 QRSD: 78 QT: 342 QTc: 462 [place]: P: 30 CA: 166 QRS: 197 T: 10 INTERPRETIVE STATEMENTS: Sinus tachycardia Right superior axis deviation Abnormal ECG Compared to ECG 04/09/2018 00:11:05 Right superior axis now present Right-axis deviation no longer present Myocardial infarct finding no longer present Electronically Signed On 10-05-18 13:22:15 LICENSED AIRCRAFT MAINTENANCE ENGINEER by Lenny Anguiano
--- NOTE | 2018-10-09 14:04 | RAD REPORT ---
EXAM DESCRIPTION: RAD - Urethrocystogrphy Retrograde - 10/08/2018 2:56 pm CLINICAL HISTORY: STENT PLACEMENT COMPARISON: No comparisons FINDINGS: Fluoroscopic imaging of the abdomen is submitted from a ureteral stent placement procedure . Details of procedure not available. Total fluoro time: 0.2 minutes
== END 2018-10-04 16:29 | disposition home or self-care (01) ==
LOC: ER 07:33 → ERHOLD 10:53 → 2ND 14:57
PROVIDERS: ADMIT Family Medicine; ATTEND Family Medicine
PROC: 0T778DZ Dilation of Left Ureter with Intraluminal Device, Via Natural or Artificial Opening Endoscopic (ICD-10-PCS; principal; 2018-10-04 13:30)
DX: N20.1 Calculus of ureter (principal); F41.9 Anxiety disorder, unspecified; I10 Essential (primary) hypertension; E78.5 Hyperlipidemia, unspecified; E03.9 Hypothyroidism, unspecified; G47.00 Insomnia, unspecified; E11.9 Type 2 diabetes mellitus without complications
CPT/HCPCS: 36415; 51610; 71045; 74018; 74177; 74450; 80048; 80076; 81003; 81015; 82962; 83690; 84550; 85025; 87086; 87088; 93005; 96365; 96375; 99285; G0378; J2250; J2405; J2704; J3010; J7030; Q9967

== ENCOUNTER 2018-10-08 03:29 | Emergency (ER) | payer SELFPAY ==
[2018-10-08 04:30] LABS: Absolute Lymphocytes (CBC) 2.2 K/uL (0.7-4.9); Absolute Monocytes 0.8 K/uL (0.1-1.3); Absolute Neutrophil 8.9 K/uL (1.8-8.0); Basophils % 1.3 % (0-1.3); Eosinophils % 0.5 % (0-4.4); Hematocrit 41.4 % (36.0-45.0); Lymphocytes % 18.5 % (15.3-44.8); MPV 10.9 fL (7.6-11.3); Monocytes % 6.3 % (3.3-12.3); RBC Red Blood Cell Count 4.71 M/uL (3.86-4.86)
[2018-10-08] MEDS ORDERED: MORPHINE 4 MG/ML SYR ONE (04:34)
[2018-10-08] MEDS ORDERED: KETOROLAC 30 MG/ML INJ ONE (04:35)
[2018-10-08] MEDS ORDERED: CEFTRIAXONE/SWI 1gm 1 GM/10 ML SYR ONE (04:35)
[2018-10-08] MEDS ORDERED: NA CHLORIDE 0.9% 1,000 ML ONE (04:35)
[2018-10-08] MEDS ORDERED: ONDANSETRON 4 MG/2 ML VIAL ONE ×2 (04:35→07:14)
[2018-10-08 04:39] LABS: Urine Blood 3+ (NEG); Urine Glucose NEGATIVE (NEG); Urine Protein 2+ (NEG); Urine Specific Gravity >1.030 (1.005-1.030)
[2018-10-08 05:18] LABS: Albumin 3.3 g/dL (3.4-5.0); Bilirubin Total 0.4 mg/dL (0.2-1.0); Potassium 4.2 mmol/L (3.5-5.1)
[2018-10-08] MEDS ORDERED: CIPROFLOXACIN HCL 500 MG TAB ONE (05:22)
[2018-10-08] MEDS ORDERED: TAMSULOSIN 0.4 MG SR CAP ONE (05:22)
--- NOTE | 2018-10-08 05:39 | EDPHYS ---
Physician Documentation [facility] Name: Gamaliel Myers Age: 58 yrs Sex: Female : 1960 Arrival Date: 10/08/2018 Time: 03:30 Bed 18 Private MD: Cayetano Sharif HPI: 10/08 04:10 This 58 yrs old Female presents to ER via Ambulatory with complaints of Flank keith Pain. 04:10 This 58 yrs old Female presents to ER via Ambulatory with complaints of Flank ketih Pain. 04:10 The patient complains of pain in the left low back and left mid back. The pain radiates keith to the left low back and left mid back. Onset: The symptoms/episode began/occurred last night. Modifying factors: The symptoms are alleviated by nothing. the symptoms are aggravated by nothing. Associated signs and symptoms: The patient has no apparent associated signs or symptoms. Severity of pain: At its worst the pain was moderate in the emergency department the pain is unchanged. The patient has not experienced similar symptoms in the past. Historical: - Allergies: 03:56 No Known Allergies; ea - Home Meds: 03:56 amlodipine 5 mg tab 1 tab once daily [Active]; Fish Oil 1,000 mg Oral cap daily ea [Active]; fluoxetine 20 mg Oral cap 1 cap once daily [Active]; garlic 1,000 mg Oral cap daily [Active]; hydroxyzine HCl 25 mg Oral tab 4 times per day [Active]; glimepiride 4 mg Oral tab twice a day [Active]; levothyroxine 112 mcg tab 1 tab once daily [Active]; lisinopril 20 mg Oral tab 1 tab once daily [Active]; metformin 1,000 mg Oral tab 1 tab 2 times per day [Active]; Vitamin D3 1,000 unit Oral tab daily [Active]; zolpidem 5 mg Oral tab 1 tab once daily [Active]; - PMHx: 03:56 insomnia; Hypothyroidism; Hypertension; Hyperlipidemia; Diabetes - NIDDM; Anxiety; ea - PSHx: 03:56 heart cath; bilateral thumb sx; Knee surgery; Hernia repair; Cholecystectomy; ea Hysterectomy; - Immunization history:: Adult Immunizations not up to date. - Social history:: Smoking status: Patient/guardian denies using tobacco. - Ebola Screening: : No symptoms or risks identified at this time. ROS: 04:12 Constitutional: Negative for fever, chills, and weight loss, Eyes: Negative for injury, keith pain, redness, and discharge, ENT: Negative for injury, pain, and discharge, Neck: Negative for injury, pain, and swelling, Cardiovascular: Negative for chest pain, palpitations, and edema, Respiratory: Negative for shortness of breath, cough, wheezing, and pleuritic chest pain, Abdomen/GI: Negative for abdominal pain, nausea, vomiting, diarrhea, and constipation, : Negative for injury, bleeding, discharge, and swelling, MS/Extremity: Negative for injury and deformity, Skin: Negative for injury, rash, and discoloration, Neuro: Negative for headache, weakness, numbness, tingling, and seizure, Psych: Negative for depression, anxiety, suicide ideation, homicidal ideation, and hallucinations, Allergy/Immunology: Negative for hives, rash, and allergies, Endocrine: Negative for neck swelling, polydipsia, polyuria, polyphagia, and marked weight changes, Hematologic/Lymphatic: Negative for swollen nodes, abnormal bleeding, and unusual bruising. 04:12 Back: Positive for decreased range of motion, flank pain, on the left. Exam: 04:12 Constitutional: This is a well developed, well nourished patient who is awake, alert, keith and in no acute distress. Head/Face: Normocephalic, atraumatic. Eyes: Pupils equal round and reactive to light, extra-ocular motions intact. Lids and lashes normal. Conjunctiva and sclera are non-icteric and not injected. Cornea within normal limits. Periorbital areas with no swelling, redness, or edema. ENT: Nares patent. No nasal discharge, no septal abnormalities noted. Tympanic membranes are normal and external auditory canals are clear. Oropharynx with no redness, swelling, or masses, exudates, or evidence of obstruction, uvula midline. Mucous membranes moist. Neck: Trachea midline, no thyromegaly or masses palpated, and no cervical lymphadenopathy. Supple, full range of motion without nuchal rigidity, or vertebral point tenderness. No Meningismus. Chest/axilla: Normal chest wall appearance and motion. Nontender with no deformity. No lesions are appreciated. Cardiovascular: Regular rate and rhythm with a normal S1 and S2. No gallops, murmurs, or rubs. Normal PMI, no JVD. No pulse deficits. Respiratory: Lungs have equal breath sounds bilaterally, clear to auscultation and percussion. No rales, rhonchi or wheezes noted. No increased work of breathing, no retractions or nasal flaring. Female : Normal external genitalia. Skin: Warm, dry with normal turgor. Normal color with no rashes, no lesions, and no evidence of cellulitis. MS/ Extremity: Pulses equal, no cyanosis. Neurovascular intact. Full, normal range of motion. Neuro: Awake and alert, GCS 15, oriented to person, place, time, and situation. Cranial nerves II-XII grossly intact. Motor strength 5/5 in all extremities. Sensory grossly intact. Cerebellar exam normal. Normal gait. Psych: Awake, alert, with orientation to person, place and time. Behavior, mood, and affect are within normal limits. 04:12 Abdomen/GI: Inspection: distension, Bowel sounds: normal, Palpation: moderate abdominal tenderness, in the left upper quadrant and left lower quadrant, Liver: no appreciated palpable abnormalities, Hernia: not appreciated. 05:39 Musculoskeletal/extremity: DVT Exam: No signs of deep vein thrombosis. no pain, no keith swelling, no tenderness, negative Homans' sign noted on exam, no appreciated bluish discoloration, no erythema, no increased warmth. Vital Signs: 03:59 BP 187 / 91; Pulse 90; Resp 18; Temp 98.3(O); Pulse Ox 95% on R/A; Weight 108.86 kg; ea Height 5 ft. 5 in. (165.10 cm); Pain 8/10; 04:15 BP 171 / 96; Pulse 97; Resp 18; Pulse Ox 95% ; ea 05:00 BP 175 / 81; Pulse 90; Resp 18; Pulse Ox 93% ; ea 08:08 BP 135 / 79; Pulse 90; Resp 18; Temp 98.1(O); Pulse Ox 96% on R/A; hj 03:59 Body Mass Index 39.94 (108.86 kg, 165.10 cm) ea MDM: 03:53 Patient medically screened. [facility] 04:14 Data reviewed: vital signs, nurses notes, lab test result(s), radiologic studies, plain keith films. 10/08 04:10 Order name: CBC with Diff [facility] 10/08 04:10 Order name: Comprehensive Metabolic Panel [facility] 10/08 04:10 Order name: Urine Culture [facility] 10/08 04:11 Order name: CBC with Automated Diff; Complete Time: 05:00 EDMS 10/08 04:11 Order name: Comprehensive Metabolic Panel; Complete Time: 05:38 EDMS 10/08 04:24 Order name: Urine Dipstick--Ancillary (enter results); Complete Time: 05:00 ar5 10/08 04:10 Order name: Abdomen 1 View (KUB) XRAY; Complete Time: 07:05 [facility] 10/08 06:18 Order name: Troponin (emerg Dept Use Only) [facility] 10/08 06:18 Order name: CT Abd/Pelvis - W/Contrast: iv only; Complete Time: 07:05 [facility] 10/08 06:18 Order name: Chest Single View XRAY [facility] 10/08 04:10 Order name: Urine Dipstick-Ancillary (obtain specimen); Complete Time: 04:21 [facility] 10/08 06:18 Order name: EKG; Complete Time: 06:19 [facility] 10/08 06:18 Order name: EKG - Nurse/Tech; Complete Time: 07:18 [facility] Administered Medications: 04:35 Drug: Zofran 4 mg Route: IVP; Site: left antecubital; ea 05:18 Follow up: Response: No adverse reaction ea 04:37 Drug: NS 0.9% 1000 ml Route: IV; Rate: 1 bolus; Site: left antecubital; ea 07:01 Follow up: IV Status: Completed infusion hj 04:37 Drug: morphine 4 mg Route: IVP; Site: left antecubital; ea 05:17 Follow up: Response: No adverse reaction; Pain is decreased ea 04:38 Drug: Rocephin - (cefTRIAXone) 1 grams Route: IVPB; Infused Over: 30 mins; Site: left ea antecubital; 05:18 Follow up: Response: No adverse reaction; IV Status: Completed infusion ea 04:40 Drug: TORadol 30 mg Route: IVP; Site: left antecubital; ea 05:18 Follow up: Response: No adverse reaction ea 05:16 Drug: Cipro 500 mg Route: PO; ea 07:01 Follow up: Response: No adverse reaction hj 05:16 Drug: Flomax 0.4 mg Route: PO; ea 07:02 Follow up: Response: No adverse reaction hj 07:08 Drug: fentaNYL (PF) 25 mcg Route: IVP; Site: left antecubital; hj 07:19 Follow up: Response: No adverse reaction; Pain is decreased hj 07:08 Drug: Zofran 4 mg Route: IVP; Site: left antecubital; hj 07:19 Follow up: Response: No adverse reaction hj 08:06 Not Given (Patient Refused): fentaNYL (PF) 25 mcg IVP once hj Disposition: 10/08/18 05:39 Discharged to Home. Impression: Hydronephrosis with renal and ureteral calculous obstruction, Urinary tract infection, site not specified, Abdominal tenderness - left ureteral stent. - Condition is Stable. - Discharge Instructions: Abdominal Pain, Adult, Kidney Stones, Nausea and Vomiting, Adult, Urinary Tract Infection, Adult, Kidney Stones, [id number], Urinary Tract Infection, Adult, Ixzs-yy-Sula, Abdominal Pain, Adult, Cduf-ct-Flhb, Hydronephrosis, Hypokalemia. - Prescriptions for Tylenol- Codeine #3 300-30 mg Oral Tablet - take 2 tablet by ORAL route every 6 hours As needed; 30 tablet. Zofran 4 mg Oral Tablet - take 1 tablet by ORAL route every 12 hours As needed; 20 tablet. Flomax 0.4 mg Oral Capsule, Sust. Release 24 hr - take 1 capsule by ORAL route once daily 1/2 hour following the same meal each day; 30 capsule. Cipro 500 mg Oral Tablet - take 1 tablet by ORAL route every 12 hours for 7 days; 14 tablet. - Medication Reconciliation Form, Thank You Letter, Antibiotic Education, Prescription Opioid Use form. - Follow up: Private Physician; When: 2 - 3 days; Reason: Recheck today's complaints, Continuance of care, Re-evaluation by your physician. Follow up: Josee Munoz; When: 2 - 3 days; Reason: Recheck today's complaints, Continuance of care, Re-evaluation by your physician. - Problem is new. - Symptoms have improved. Signatures: Dispatcher [employer] EDCayetano Tabares MD MD cha Joaquin, Henry, RN RN hj Antunez, Elena, RN RN ea Corrections: (The following items were deleted from the chart) 08:11 05:39 10/08/2018 05:39 Discharged to Home. Impression: Hydronephrosis with renal and hj ureteral calculous obstruction; Urinary tract infection, site not specified; Abdominal tenderness - left ureteral stent. Condition is Stable. Discharge Instructions: Abdominal Pain, Adult, Kidney Stones, Nausea and Vomiting, Adult, Urinary Tract Infection, Adult, Kidney Stones, Sxzf-yd-Rnzu, Urinary Tract Infection, Adult, Wrhr-nv-Lmwt, Abdominal Pain, Adult, Nvad-dk-Xbmn, Hydronephrosis, Hypokalemia. Prescriptions for Tylenol-Codeine #3 300-30 mg Oral Tablet - take 2 tablet by ORAL route every 6 hours As needed; 30 tablet, Zofran 4 mg Oral Tablet - take 1 tablet by ORAL route every 12 hours As needed; 20 tablet, Flomax 0.4 mg Oral Capsule, Sust. Release 24 hr - take 1 capsule by ORAL route once daily 1/2 hour following the same meal each day; 30 capsule, Cipro 500 mg Oral Tablet - take 1 tablet by ORAL route every 12 hours for 7 days; 14 tablet. and Forms are Medication Reconciliation Form, Thank You Letter, Antibiotic Education, Prescription Opioid Use. Follow up: Private Physician; When: 2 - 3 days; Reason: Recheck today's complaints, Continuance of care, Re-evaluation by your physician. Follow up: Josee Munoz; When: 2 - 3 days; Reason: Recheck today's complaints, Continuance of care, Re-evaluation by your physician. Problem is new. Symptoms have improved. keith
--- NOTE | 2018-10-08 05:39 | ER ---
Nurse's Notes [facility] Name: Gamaliel Myers Age: 58 yrs Sex: Female : 1960 Arrival Date: 10/08/2018 Time: 03:30 Bed 18 Private MD: Diagnosis: Hydronephrosis with renal and ureteral calculous obstruction;Urinary tract infection, site not specified;Abdominal tenderness-left ureteral stent Presentation: 10/08 03:51 Presenting complaint: Patient states: Pt complaining of back pain and burning that ea started a few hours ago. Pt reports the pain had been there since Saturday after a stent placement due to a kidney stone. Pt states the pain was there but not as intense. Transition of care: patient was not received from another setting of care. Onset of symptoms was October 08, 2018. Risk Assessment: Do you want to hurt yourself or someone else? Patient reports no desire to harm self or others. Initial Sepsis Screen: Does the patient meet any 2 criteria? No. Patient's initial sepsis screen is negative. Does the patient have a suspected source of infection? No. Patient's initial sepsis screen is negative. Care prior to arrival: None. 03:51 Method Of Arrival: Ambulatory ea 03:51 Acuity: DEVENDRA 3 ea Triage Assessment: 03:56 General: Appears uncomfortable, Behavior is calm, cooperative, appropriate for age. ea Pain: Complains of pain in back Pain currently is 8 out of 10 on a pain scale. Quality of pain is described as burning. Neuro: Level of Consciousness is awake, alert, obeys commands, Oriented to person, place, time, situation. Cardiovascular: Patient's skin is warm and dry. Respiratory: Airway is patent Respiratory effort is even, unlabored, Respiratory pattern is regular, symmetrical. : Reports urgency, Denies burning with urination. Derm: Skin is pink, warm \T\ dry. Musculoskeletal: Circulation, motion, and sensation intact. Historical: - Allergies: 03:56 No Known Allergies; ea - Home Meds: 03:56 amlodipine 5 mg tab 1 tab once daily [Active]; Fish Oil 1,000 mg Oral cap daily ea [Active]; fluoxetine 20 mg Oral cap 1 cap once daily [Active]; garlic 1,000 mg Oral cap daily [Active]; hydroxyzine HCl 25 mg Oral tab 4 times per day [Active]; glimepiride 4 mg Oral tab twice a day [Active]; levothyroxine 112 mcg tab 1 tab once daily [Active]; lisinopril 20 mg Oral tab 1 tab once daily [Active]; metformin 1,000 mg Oral tab 1 tab 2 times per day [Active]; Vitamin D3 1,000 unit Oral tab daily [Active]; zolpidem 5 mg Oral tab 1 tab once daily [Active]; - PMHx: 03:56 insomnia; Hypothyroidism; Hypertension; Hyperlipidemia; Diabetes - NIDDM; Anxiety; ea - PSHx: 03:56 heart cath; bilateral thumb sx; Knee surgery; Hernia repair; Cholecystectomy; ea Hysterectomy; - Immunization history:: Adult Immunizations not up to date. - Social history:: Smoking status: Patient/guardian denies using tobacco. - Ebola Screening: : No symptoms or risks identified at this time. Screenin:00 Abuse screen: Denies threats or abuse. Nutritional screening: No deficits noted. ea Tuberculosis screening: No symptoms or risk factors identified. Fall Risk None identified. Assessment: 05:20 Reassessment: Patient and/or family updated on plan of care and expected duration. Pain ea level reassessed. Patient is alert, oriented x 3, equal unlabored respirations, skin warm/dry/pink. Pt reports pain decreased. 05:50 Reassessment: Patient and/or family updated on plan of care and expected duration. Pain ea level reassessed. Provider at bedside, pt complaining of abdominal pain and chest pain. 06:00 Reassessment: Patient and/or family updated on plan of care and expected duration. Pain ea level reassessed. Patient is alert, oriented x 3, equal unlabored respirations, skin warm/dry/pink. Pt taken to CT. 08:07 Reassessment: pt D/C'd post negative trop level; instructions given;. hj Vital Signs: 03:59 BP 187 / 91; Pulse 90; Resp 18; Temp 98.3(O); Pulse Ox 95% on R/A; Weight 108.86 kg; ea Height 5 ft. 5 in. (165.10 cm); Pain 8/10; 04:15 BP 171 / 96; Pulse 97; Resp 18; Pulse Ox 95% ; ea 05:00 BP 175 / 81; Pulse 90; Resp 18; Pulse Ox 93% ; ea 08:08 BP 135 / 79; Pulse 90; Resp 18; Temp 98.1(O); Pulse Ox 96% on R/A; hj 03:59 Body Mass Index 39.94 (108.86 kg, 165.10 cm) ea ED Course: 03:30 Patient arrived in ED. ag3 03:51 Kaylen Richards RN is Primary Nurse. ea 03:51 Arm band placed on right wrist. Patient placed in an exam room, on a stretcher, on ea pulse oximetry. 03:53 Triage completed. ea 03:53 Cayetano Clark MD is Attending Physician. keith 04:01 Patient has correct armband on for positive identification. Bed in low position. Call ea light in reach. Side rails up X 1. 04:30 Inserted saline lock: 20 gauge in left antecubital area, using aseptic technique. Blood ea collected. 04:54 Patient moved to radiology via wheelchair. kw 04:54 X-ray completed. Patient tolerated procedure well. kw 04:54 Patient moved back from radiology. kw 04:56 Abdomen 1 View (KUB) XRAY In Process Unspecified. EDMS 05:39 Josee Munoz MD is Referral Physician. keith 06:32 Patient moved to radiology via stretcher. kw 06:32 X-ray completed. Patient tolerated procedure well. kw 06:[address] via stretcher. kw1 06:48 CT Abd/Pelvis - W/Contrast: iv only In Process Unspecified. EDMS 06:51 CT completed. Patient tolerated procedure well. Patient moved back from CT. kw1 07:09 Report received from VEE Lentz. hj 07:19 Troponin (emerg Dept Use Only) Sent. hj 07:33 Chest Single View XRAY In Process Unspecified. EDMS 07:34 EKG done, by mammography technician. reviewed by Cayetano Clark MD. at1 08:06 No provider procedures requiring assistance completed. IV discontinued, intact, hj bleeding controlled, No redness/swelling at site. Pressure dressing applied. Administered Medications: 04:35 Drug: Zofran 4 mg Route: IVP; Site: left antecubital; ea 05:18 Follow up: Response: No adverse reaction ea 04:37 Drug: NS 0.9% 1000 ml Route: IV; Rate: 1 bolus; Site: left antecubital; ea 07:01 Follow up: IV Status: Completed infusion hj 04:37 Drug: morphine 4 mg Route: IVP; Site: left antecubital; ea 05:17 Follow up: Response: No adverse reaction; Pain is decreased ea 04:38 Drug: Rocephin - (cefTRIAXone) 1 grams Route: IVPB; Infused Over: 30 mins; Site: left ea antecubital; 05:18 Follow up: Response: No adverse reaction; IV Status: Completed infusion ea 04:40 Drug: TORadol 30 mg Route: IVP; Site: left antecubital; ea 05:18 Follow up: Response: No adverse reaction ea 05:16 Drug: Cipro 500 mg Route: PO; ea 07:01 Follow up: Response: No adverse reaction hj 05:16 Drug: Flomax 0.4 mg Route: PO; ea 07:02 Follow up: Response: No adverse reaction hj 07:08 Drug: fentaNYL (PF) 25 mcg Route: IVP; Site: left antecubital; hj 07:19 Follow up: Response: No adverse reaction; Pain is decreased hj 07:08 Drug: Zofran 4 mg Route: IVP; Site: left antecubital; hj 07:19 Follow up: Response: No adverse reaction hj 08:06 Not Given (Patient Refused): fentaNYL (PF) 25 mcg IVP once hj Outcome: 05:39 Discharge ordered by MD. parker 08:07 Discharged to home ambulatory. hj 08:07 Condition: stable 08:07 Discharge instructions given to patient, Instructed on discharge instructions, follow up and referral plans. medication usage, Demonstrated understanding of instructions, follow-up care, medications, Prescriptions given X 4. 08:11 Patient left the ED. hj Signatures: Dispatcher [employer] EDMS Cayetano Clark MD MD cha Whitley, Kimberlee kw Gonzales, Amanda, shirt operator EKG Tat1 Austen Case RN RN hj Antunez, Elena, RN RN ea Wilhelm, Kimberly kw1 Amita Helm3 Corrections: (The following items were deleted from the chart) 06:33 06:32 Patient moved to MT via stretcher. slim kw1
--- NOTE | 2018-10-08 06:46 | RAD REPORT ---
EXAM DESCRIPTION: RAD - Abdomen 1 View (KUB) - 10/08/2018 5:00 am CLINICAL HISTORY: Abdominal pain, back pain, flank pain COMPARISON: October 04 KUB FINDINGS: Large stool volume is present filling but not dilating the colon. No small bowel dilatatio n. No obstruction, free air or pneumatosis. Double pigtail stent has been placed in good position. Th e previously detailed 12 mm UPJ calculus has been displaced into the central pelvis. Numerous pelvic floor phleboliths are present. Cholecystectomy clips and hemostasis clips are seen in the right side of the abdomen. No new bone finding. IMPRESSION: Double-pigtail stent is in good position. Previously detailed UPJ calculus has been disp laced retrograde into the central pelvis.
--- NOTE | 2018-10-08 06:58 | RAD REPORT ---
EXAM DESCRIPTION: CT - Abdomen Pelvis W Contrast - 10/08/2018 6:48 am CLINICAL HISTORY: Back pain, obstructing calculus, stent placement A preliminary report was provided at the time of the study and reviewed prior to final report. Final report was provided prior to receipt of preliminary report. COMPARISON: KUB same date, CT imaging October 04 TECHNIQUE: Biphasic, helical CT imaging of the abdomen and pelvis was performed following 100 ml non -ionic IV contrast. No oral contrast administered. All CT scans are performed using dose optimization technique as appropriate and may include automated exposure control or mA/KV adjustment according to patient size. FINDINGS: No suspicious findings in the lung bases. The liver, spleen, and pancreas show no suspicious findings. Cholecystectomy clips are present. No bi liary tree dilatation. Renal function is symmetric. No pyelonephritis or acute parenchymal process seen. No right-sided hydr onephrosis. Parapelvic cysts are present. Moderate dilatation of the left renal pelvis remains. Stent is in good position. There is edema or inflammatory changes to the browning of the proximal left collec ting system. Small amount of left perinephric stranding present. Obstructing UPJ calculus has been di splaced into the central pelvis. No bladder abnormalities. Fullness to the right adrenal gland and le ft adrenal mass unchanged over this short interval. No dilated bowel loops or bowel wall thickening. Moderately large stool volume throughout the colon. No acute colon process suspected. No free air or pneumatosis. No progressive inflammatory stranding. No mass or bulky lymphadenopathy. Umbilical hernia containing bowel again noted. No acute component. No suspicious bony findings. IMPRESSION: Double-pigtail stent is in good position in the left collecting system. The obstructing UPJ calculus has been displaced into the central left renal pelvis. Edema and thickening of the renal pelvis and proximal ureter again noted. No pyelonephritis or acute renal parenchymal process. Additional nonacute findings detailed in the body of the report.
[2018-10-08] MEDS ORDERED: FENTANYL CITR 100 MCG/2 ML ONE (07:14)
--- NOTE | 2018-10-08 08:13 | RAD REPORT ---
EXAM DESCRIPTION: RAD - Chest Single View - 10/08/2018 7:33 am CLINICAL HISTORY: Chest pain, back pain, known obstructing the left calculus COMPARISON: Chest film October 04 TECHNIQUE: AP portable chest image was obtained 0633 hours . FINDINGS: No peripheral mass or consolidation. Hazy opacification over both lung bases believed to b e artifact of portable technique and body habitus. Heart and vasculature are normal. No measurable pl eural effusion and no pneumothorax. No acute bony abnormality seen. No acute aortic findings suspecte d. IMPRESSION: No acute cardiopulmonary process.
--- NOTE | 2018-10-08 13:27 | EKG ---
Test Date: 2018-10-08 Test Time: 07:15:16 Cloth Printer: ANASTACIA MEASUREMENT RESULTS: Intervals: Rate: 106 CA: 164 QRSD: 78 QT: 372 QTc: 494 [place]: P: 39 CA: 164 QRS: 111 T: 31 INTERPRETIVE STATEMENTS: Sinus tachycardia Right axis deviation cannot rule out Septal infarct, age undetermined Abnormal ECG Compared to ECG 10/04/2018 10:06:07 Right-axis deviation now present Myocardial infarct finding now present Right superior axis no longer present Electronically Signed On 10-08-18 13:26:31 REFRIGERATION PERSON by Jacob Martinez
== END 2018-10-08 08:11 | disposition home or self-care (01) ==
LOC: ER 03:29
DX: N13.2 Hydronephrosis with renal and ureteral calculous obstruction (principal); N39.0 Urinary tract infection, site not specified; I10 Essential (primary) hypertension; E78.5 Hyperlipidemia, unspecified; E11.9 Type 2 diabetes mellitus without complications; E03.9 Hypothyroidism, unspecified; F41.9 Anxiety disorder, unspecified
CPT/HCPCS: 36415; 71045; 74018; 74177; 80053; 81003; 84484; 85025; 87086; 87088; 93005; 96361; 96365; 96375; 99285; J0696; J2405; J3010; J7030; Q9967

== ENCOUNTER 2018-11-10 10:28 | Emergency (ER) | payer SELFPAY ==
--- OUTSIDE RECORDS SUMMARY | 2018-11-10 11:32 | XMS REPORT ---
:1960 [facility] [address] Boyer [address] [place] [id number] Care Team Providers Name Role Phone Unavailable Unavailable Unavailable Problems This patient has no known problems. Allergies, Adverse Reactions, Alerts This patient has no known allergies or adverse reactions. Medications This patient has no known medications.
--- NOTE | 2018-11-10 11:45 | RAD REPORT ---
EXAM DESCRIPTION: CT - Stone Protocol - 11/10/2018 11:31 am CLINICAL HISTORY: Flank pain. stone? COMPARISON: Abdomen Pelvis W Contrast dated 10/08/2018; Stone Protocol dated 04/09/2018; Abdomen Pe lvis W Contrast dated 10/04/2018 TECHNIQUE: Axial images were obtained without oral or IV contrast. Lack of contrast limits solid org an and vascular assessment. The [id number] spans the entirety of the system partially obscuring uppermost abdomen and lung bases. Coronal reformatted images were obtained and reviewed. All CT scans are performed using dose optimization technique as appropriate and may include automated exposure control or mA/KV adjustment according to patient size. FINDINGS: The lower lung guerrero are clear. Cholecystectomy clips. Imaged portions of the liver and spleen show no suspicious findings on non-contrast imaging.The right adrenal gland appears unremarkable. 21 mm left adrenal mass is noted, most likely an adenoma. No pat hologic lymphadenopathy in the abdomen or pelvis. 10 mm stone is present in mid-pole calyx of the left kidney. Additional smaller 3 mm stone is present inferior calyx left kidney. Double-J stent is in place on the left, proximal aspect in the left leobardo l pelvis and distal aspect in the urinary bladder. No stone is seen along the course of the stent. Mi ld left hydronephrosis persists. No right-sided stone or hydronephrosis seen. No bowel obstruction, free air, free fluid or abscess. Normal appendix noted.Multiple ventral hernias are present containing fat and small bowel without obstruction. Laxity anterior abdominal wall is pr esent. No significant bony abnormality. IMPRESSION: 10 mm stone midpole left kidney. 3 mm stone in the inferior calyx left kidney. Mild left hydronephrosis persists with double-J stent in place.
[2018-11-10 11:58] LABS: Urine Blood 3+ (NEG); Urine Glucose NEGATIVE (NEG); Urine Protein 3+ (NEG)
[2018-11-10 12:01] LABS: Absolute Lymphocytes (CBC) 2.8 K/uL (0.7-4.9); Absolute Monocytes 0.5 K/uL (0.1-1.3); Absolute Neutrophil 4.4 K/uL (1.8-8.0); Basophils % 0.9 % (0-1.3); Hematocrit 41.7 % (36.0-45.0); Lymphocytes % 34.8 % (15.3-44.8); MPV 10.3 fL (7.6-11.3); Monocytes % 6.5 % (3.3-12.3)
[2018-11-10 12:21] LABS: Albumin 3.5 g/dL (3.4-5.0); Bilirubin Direct 0.1 mg/dL (0-0.2); Bilirubin Total 0.5 mg/dL (0.2-1.0); Potassium 4.1 mmol/L (3.5-5.1); Protein, Total 6.9 g/dL (6.4-8.2)
[2018-11-10] MEDS ORDERED: HYDROCODONE/APAP 10/325 TAB ONE (12:51)
--- NOTE | 2018-11-10 13:07 | EDPHYS ---
Physician Documentation [facility] Name: Gamaliel Myers Age: 58 yrs Sex: Female : 1960 Arrival Date: 11/10/2018 Time: 10:31 Bed 24 Private MD: ED Physician Rita Solorzano HPI: 11/10 12:05 This 58 yrs old Female presents to ER via Ambulatory with complaints of Low ma2 Back Pain, Low Abdominal Pain. 12:05 The pain does not radiate. Onset: The symptoms/episode began/occurred gradually, 1 ma2 month(s) ago. Associated signs and symptoms: Pertinent negatives: chest pain, fever, hematuria, numbness. Severity of symptoms: At their worst the symptoms were mild, in the emergency department the symptoms are unchanged. The patient has experienced similar episodes in the past. Historical: - Allergies: 10:36 No Known Allergies; aa5 - PMHx: 10:36 Anxiety; Diabetes - NIDDM; Hyperlipidemia; Hypertension; Hypothyroidism; insomnia; aa5 - PSHx: 10:36 heart cath; bilateral thumb sx; Knee surgery; Hernia repair; Cholecystectomy; aa5 Hysterectomy; L kidney stent; - Immunization history:: Flu vaccine is not up to date. - Social history:: Smoking status: Patient/guardian denies using tobacco, Patient/guardian denies using alcohol, street drugs, The patient lives with spouse. - Ebola Screening: : No symptoms or risks identified at this time. - Family history:: not pertinent. - Hospitalizations: : No recent hospitalization is reported. ROS: 12:05 Constitutional: Negative for fever, chills, and weight loss, Respiratory: Negative for ma2 shortness of breath, cough, wheezing, and pleuritic chest pain, Abdomen/GI: Negative for abdominal pain, nausea, diarrhea, and constipation. 12:05 Abdomen/GI: Positive for abdominal pain, Negative for nausea, vomiting, and diarrhea, vomiting, constipation, rectal bleeding, acute changes. 12:05 All other systems are negative. Exam: 12:05 Constitutional: This is a well developed, well nourished patient who is awake, alert, ma2 and in no acute distress. Chest/axilla: Normal chest wall appearance and motion. Nontender with no deformity. No lesions are appreciated. Cardiovascular: Regular rate and rhythm with a normal S1 and S2. No gallops, murmurs, or rubs. Normal PMI, no JVD. No pulse deficits. Respiratory: Lungs have equal breath sounds bilaterally, clear to auscultation and percussion. No rales, rhonchi or wheezes noted. No increased work of breathing, no retractions or nasal flaring. Abdomen/GI: Soft, non-tender, with normal bowel sounds. No distension or tympany. No guarding or rebound. No evidence of tenderness throughout. MS/ Extremity: Pulses equal, no cyanosis. Neurovascular intact. Full, normal range of motion. Neuro: Awake and alert, GCS 15, oriented to person, place, time, and situation. Cranial nerves II-XII grossly intact. Motor strength 5/5 in all extremities. Sensory grossly intact. Cerebellar exam normal. Normal gait. Vital Signs: 10:36 BP 149 / 96; Pulse 115; Resp 16 S; Temp 97.9(O); Pulse Ox 93% on R/A; Weight 109.77 kg aa5 (R); Height 5 ft. 5 in. (165.10 cm) (R); Pain 8/10; 13:14 BP 148 / 75; Pulse 99; Resp 20; Pulse Ox 99% on R/A; aj 10:36 Body Mass Index 40.27 (109.77 kg, 165.10 cm) aa5 MDM: 10:54 Patient medically screened. ma2 12:05 Differential diagnosis: strain, contusion, UTI. ky2 12:25 Data reviewed: vital signs, nurses notes. ma2 13:04 Counseling: I had a detailed discussion with the patient and/or guardian regarding: the [facility] historical points, exam findings, and any diagnostic results supporting the discharge/admit diagnosis, the presence of at least one elevated blood pressure reading (>120/80) during this emergency department visit, the need for outpatient follow up. Response to treatment: the patient's symptoms have resolved after treatment. ED course: discussed with dr. munoz who recommends removing the stent, removed by me in the er with no complication.. she will see him in the clinic . 11/10 11:17 Order name: Basic Metabolic Panel; Complete Time: 12:23 ky2 11/10 11:17 Order name: CBC with Diff; Complete Time: 12:23 ky2 11/10 11:17 Order name: Creatinine for Radiology; Complete Time: 12:40 [facility] 11/10 11:17 Order name: Hepatic Function; Complete Time: 12:23 [facility] 11/10 11:17 Order name: Lipase; Complete Time: 12:23 [facility] 11/10 11:27 Order name: Urine Dipstick--Ancillary (enter results); Complete Time: 12:23 11/10 11:17 Order name: IV Saline Lock; Complete Time: 12:09 [facility] 11/10 11:17 Order name: Labs collected and sent; Complete Time: 12: [facility] 11/10 11:30 Order name: Stone Protocol; Complete Time: 12:23 EDDC Administered Medications: 12:42 Drug: [place] 10 mg-325 mg 1 tabs Route: PO; 13:16 Follow up: Response: Pain is decreased aj Disposition: 11/10/18 13:05 Discharged to Home. Impression: Calculus of urinary tract in diseases classified elsewhere. - Condition is Stable. - Discharge Instructions: Renal Colic, Lithotripsy. - Prescriptions for Tylenol- Codeine #3 300-30 mg Oral Tablet - take 2 tablet by ORAL route every 6 hours As needed; 6 tablet. - Medication Reconciliation Form, Thank You Letter, Antibiotic Education, Prescription Opioid Use form. - Follow up: Josee Munoz MD; When: Tomorrow; Reason: Continuance of care. Signatures: Dispatcher [employer] Aileen Lindsay RN Erika Davila RN RN aa5 Rita Solorzano MD MD ma2 Corrections: (The following items were deleted from the chart) 11:29 11:18 Abdomen Pelvis Wo Con+CT.RAD.BRZ ordered. [facility] EDDC 13:17 13:05 11/10/2018 13:05 Discharged to Home. Impression: Calculus of urinary tract in aj diseases classified elsewhere. Condition is Stable. Forms are Medication Reconciliation Form, Thank You Letter, Antibiotic Education, Prescription Opioid Use. Follow up: Josee Munoz; When: Tomorrow; Reason: Continuance of care. ma2
--- NOTE | 2018-11-10 13:07 | ER ---
Nurse's Notes [facility] Name: Gamaliel Myers Age: 58 yrs Sex: Female : 1960 Arrival Date: 11/10/2018 Time: 10:31 Bed 24 Private MD: Diagnosis: Calculus of urinary tract in diseases classified elsewhere Presentation: 11/10 10:34 Presenting complaint: Patient states: "I had a kidney stent placed by Dr. Munoz about a aa5 month ago and the pain went away for a few days but it came back". Pt c/o pain to left flank. Pt reports urinary frequency. Transition of care: patient was not received from another setting of care. Onset of symptoms was October 2018. Risk Assessment: Do you want to hurt yourself or someone else? Patient reports no desire to harm self or others. Initial Sepsis Screen: Does the patient meet any 2 criteria? No. Patient's initial sepsis screen is negative. Does the patient have a suspected source of infection? No. Patient's initial sepsis screen is negative. Care prior to arrival: None. 10:34 Method Of Arrival: Ambulatory aa5 10:34 Acuity: DEVENDRA 3 aa5 Historical: - Allergies: 10:36 No Known Allergies; aa5 - PMHx: 10:36 Anxiety; Diabetes - NIDDM; Hyperlipidemia; Hypertension; Hypothyroidism; insomnia; aa5 - PSHx: 10:36 heart cath; bilateral thumb sx; Knee surgery; Hernia repair; Cholecystectomy; aa5 Hysterectomy; L kidney stent; - Immunization history:: Flu vaccine is not up to date. - Social history:: Smoking status: Patient/guardian denies using tobacco, Patient/guardian denies using alcohol, street drugs, The patient lives with spouse. - Ebola Screening: : No symptoms or risks identified at this time. - Family history:: not pertinent. - Hospitalizations: : No recent hospitalization is reported. Screenin:45 Abuse screen: Denies threats or abuse. Denies injuries from another. Nutritional aj screening: No deficits noted. Tuberculosis screening: No symptoms or risk factors identified. Fall Risk None identified. Assessment: 10:45 General: Appears in no apparent distress. comfortable, Behavior is calm, cooperative, aj appropriate for age. Pain: Complains of pain in posterior aspect of left lateral abdomen and anterior aspect of left lateral abdomen Pain began 1 month ago after urethral stent was placed Current management is with Tramadol, but patient ran out. Neuro: Level of Consciousness is awake, alert, obeys commands, Oriented to person, place, time, situation, Appropriate for age. Respiratory: Airway is patent Respiratory effort is even, unlabored, Respiratory pattern is regular, symmetrical. : Reports pain in left flank(s), since 1 month ago when stent was placed urinary frequency. Derm: Skin is intact, is healthy with good turgor, Skin is pink, warm \\T\\ dry. normal. 13:14 Reassessment: Patient appears in no apparent distress at this time. No changes from aj previously documented assessment. Patient and/or family updated on plan of care and expected duration. Pain level reassessed. Patient is alert, oriented x 3, equal unlabored respirations, skin warm/dry/pink. Patient states feeling better. Vital Signs: 10:36 BP 149 / 96; Pulse 115; Resp 16 S; Temp 97.9(O); Pulse Ox 93% on R/A; Weight 109.77 kg aa5 (R); Height 5 ft. 5 in. (165.10 cm) (R); Pain 8/10; 13:14 BP 148 / 75; Pulse 99; Resp 20; Pulse Ox 99% on R/A; aj 10:36 Body Mass Index 40.27 (109.77 kg, 165.10 cm) aa5 ED Course: 10:31 Patient arrived in ED. rg4 10:35 Triage completed. aa5 10:35 Arm band placed on. aa5 10:38 Aileen Petersen, RN is Primary Nurse. aj 10:45 Patient has correct armband on for positive identification. aj 10:54 Rita Solorzano MD is Attending Physician. ma2 11:16 Private physician called and left message to Dr. Munoz for Dr. Solorzano for patient eb consult. 11:[address] Munoz connected with Dr. Solorzano. eb 11:31 Stone Protocol In Process Unspecified. EDMS 11:40 Inserted saline lock: 20 gauge in right antecubital area, using aseptic technique. aj Blood collected. 13:05 Josee Munoz MD is Referral Physician. ma2 13:14 No provider procedures requiring assistance completed. aj 13:15 IV discontinued, intact, bleeding controlled, No redness/swelling at site. Pressure aj dressing applied. Administered Medications: 12:42 Drug: [place] 10 mg-325 mg 1 tabs Route: PO; aj 13:16 Follow up: Response: Pain is decreased aj Outcome: 13:05 Discharge ordered by . mari 13:16 Discharged to home ambulatory, with family. aj 13:16 Condition: good 13:16 Discharge instructions given to patient, Instructed on discharge instructions, follow up and referral plans. medication usage, Demonstrated understanding of instructions, follow-up care, medications, Prescriptions given X 1. 13:17 Patient left the ED. aj Signatures: Dispatcher [employer] EDAileen Garcia RN RN Erika Jaeger RN RN [email or web address] Kimmie Flores4 Rita Solorzano MD MD ma2 Shanel Piedra Corrections: (The following items were deleted from the chart) 10:37 10:34 Presenting complaint: Patient states: "I had a kidney stent placed by Dr. Munoz aa5 about a month ago and the pain went away for a few days but it came back". Pt c/o pain to left flank aa5
== END 2018-11-10 13:17 | disposition home or self-care (01) ==
LOC: ER 10:28
DX: N20.9 Urinary calculus, unspecified (principal); I10 Essential (primary) hypertension
CPT/HCPCS: 36415; 74176; 76377; 80048; 80076; 81003; 83690; 85025; 99284

== ENCOUNTER 2019-01-18 21:56 | Observation (INO) | payer SELFPAY ==
--- OUTSIDE RECORDS SUMMARY | 2019-01-18 21:59 | XMS REPORT ---
:1960 [facility] Les Boyer [address] [place] [id number] Care Team Providers Name Role Phone Unavailable Unavailable Unavailable Problems This patient has no known problems. Allergies, Adverse Reactions, Alerts This patient has no known allergies or adverse reactions. Medications This patient has no known medications.
[2019-01-18 23:20] LABS: Absolute Lymphocytes (CBC) 3.4 K/uL (0.7-4.9); Absolute Monocytes 0.5 K/uL (0.1-1.3); Absolute Neutrophil 8.1 K/uL (1.8-8.0); Basophils % 0.9 % (0-1.3); Eosinophils % 0.9 % (0-4.4); Hematocrit 42.1 % (36.0-45.0); Lymphocytes % 27.7 % (15.3-44.8); MPV 11.2 fL (7.6-11.3); Monocytes % 4.4 % (3.3-12.3); RBC Red Blood Cell Count 4.83 M/uL (3.86-4.86)
[2019-01-18 23:25] LABS: Protime INR 0.9
[2019-01-18 23:49] LABS: ALT/SGPT 21 U/L (12-78); AST/SGOT 15 U/L (15-37); Albumin 3.5 g/dL (3.4-5.0); Alkaline Phosphatase 75 U/L (45-117); BUN Blood Urea Nitrogen 20 mg/dL (7-18); Bicarbonate 26 mmol/L (21-32); Bilirubin Direct < 0.1 mg/dL (0-0.2); Bilirubin Total 0.3 mg/dL (0.2-1.0); Glucose Level 189 mg/dL (74-106); NT PRO-BNP 178 pg/mL (<125); Potassium 4.3 mmol/L (3.5-5.1); Protein, Total 6.7 g/dL (6.4-8.2); Sodium Level 146 mmol/L (136-145); Troponin (Emerg Dept Use Only) < 0.02 ng/mL (0.0-0.045)
[2019-01-18 23:50] LABS: Magnesium 1.3 mg/dL (1.8-2.4)
[2019-01-18] MEDS ORDERED: FENTANYL CITR 100 MCG/2 ML ONE (23:50)
[2019-01-19 00:56] LABS: Urine Blood NEGATIVE (NEG); Urine Glucose NEGATIVE (NEG); Urine Protein 1+ (NEG); Urine Specific Gravity 1.025 (1.005-1.030); Urine pH 5.5 (5.0-7.0)
[2019-01-19] MEDS ORDERED: IPRATROPIUM BROM 0.5MG/2.5ML ONE (00:58)
[2019-01-19] MEDS ORDERED: ALBUTEROL 2.5 MG/3 ML NEB SOL ONE (00:58)
[2019-01-19] MEDS ORDERED: Magnesium Sulfate 2gm IVPB 2 G/50 ML BAG IV ONE (00:58)
[2019-01-19] MEDS ORDERED: FENTANYL CITR 100 MCG/2 ML ONE (01:00)
--- NOTE | 2019-01-19 04:09 | RAD REPORT ---
EXAM DESCRIPTION: CT - Angio Aorta For Dissection - 01/19/2019 2:51 am CLINICAL HISTORY: . [place] pain COMPARISON: October 2018 TECHNIQUE: Computed tomography angiography of the chest, abdomen pelvis were obtained. 100 cc Isovue 370 was administered intravenously. Coronal and sagittal reconstruction were performed. MIP 3D reconstruction was performed All CT scans are performed using dose optimization technique as appropriate and may include automated exposure control or mA/KV adjustment according to patient size. FINDINGS: An aortic dissection is not seen. An aortic aneurysm is not displayed. The celiac, SMA and ANIL are patent . Mqpr-mr-[id number] bilateral pulmonary opacities. A pericardial effusion is not seen. A pleural effusion is not noted. A 16 millimeter right substernal thyroid nodule Fatty liver. Left adrenal adenoma unchanged Spleen, pancreas and right kidney demonstrate no significant abnormality. A 12 millimeter calculus within the left renal pelvis with mild to moderate left hydronephrosis. Left perirenal stranding. Perirenal cysts are present Normal appendix. No evidence of diverticulitis Renal cysts are present. Umbilical and ventral hernias are unchanged IMPRESSION: Negative for an aortic dissection. Mild to moderate bilateral pulmonary opacities may represent pulmonary edema or pneumonia 12 millimeter calculus left renal pelvis resulting in [id number] left hydronephrosis 16 millimeter right substernal thyroid nodule. Nonemergent thyroid ultrasound recommended
[2019-01-19 04:14] LABS: Calcium Oxalate Crystals- Ur MODERATE (NONE SEEN); Urine Bacteria <20 /HPF (<20); Urine Culture Reflex Order REFLEXED; Urine RBC <5 /HPF (NONE SEEN)
--- NOTE | 2019-01-19 04:40 | EDPHYS ---
Physician Documentation [facility] Name: Gamaliel Myers Age: 58 yrs Sex: Female : 1960 Arrival Date: 01/18/2019 Time: 22:00 Bed 7 Private MD: ED Physician Patel Bertrand HPI: 01/19 05:43 This 58 yrs old Female presents to ER via Ambulatory with complaints of lt gs side pain. 05:43 The patient complains of pain in the left low back and left mid back. The pain radiates gs to the chest. Onset: The symptoms/episode began/occurred yesterday. Modifying factors: The symptoms are alleviated by nothing. the symptoms are aggravated by nothing. Associated signs and symptoms: Pertinent positives: sob. Severity of pain: At its worst the pain was severe in the emergency department the pain is unchanged. The patient has experienced similar episodes in the past, a few times. Historical: - Allergies: 01/18 22:23 No Known Allergies; bb - Home Meds: 22:23 amlodipine 5 mg tab 1 tab once daily [Active]; fluoxetine 20 mg Oral cap 1 cap once bb daily [Active]; garlic 1,000 mg Oral cap daily [Active]; glimepiride 4 mg Oral tab twice a day [Active]; levothyroxine 112 mcg tab 1 tab once daily [Active]; lisinopril 20 mg Oral tab 1 tab once daily [Active]; metformin 1,000 mg Oral tab 1 tab 2 times per day [Active]; zolpidem 10 mg oral tab 1 tab once daily [Active]; Vitamin D3 1,000 unit Oral tab daily [Active]; - PMHx: 22:23 Anxiety; Diabetes - NIDDM; Hyperlipidemia; Hypertension; Hypothyroidism; insomnia; bb - PSHx: 22:23 heart cath; bilateral thumb sx; Knee surgery; Hernia repair; Cholecystectomy; bb Hysterectomy; L kidney stent; - Immunization history:: Adult Immunizations up to date. - Social history:: Smoking status: Patient/guardian denies using tobacco, Patient/guardian denies using alcohol, street drugs. - Ebola Screening: : No symptoms or risks identified at this time. ROS: 01/19 05:43 All other systems are negative. gs Exam: 05:43 Head/Face: Normocephalic, atraumatic. gs 05:43 Eyes: Pupils equal round and reactive to light, extra-ocular motions intact. Lids and lashes normal. Conjunctiva and sclera are non-icteric and not injected. Cornea within normal limits. Periorbital areas with no swelling, redness, or edema. ENT: Nares patent. No nasal discharge, no septal abnormalities noted. Tympanic membranes are normal and external auditory canals are clear. Oropharynx with no redness, swelling, or masses, exudates, or evidence of obstruction, uvula midline. Mucous membranes moist. Neck: Trachea midline, no thyromegaly or masses palpated, and no cervical lymphadenopathy. Supple, full range of motion without nuchal rigidity, or vertebral point tenderness. No Meningismus. Chest/axilla: Normal chest wall appearance and motion. Nontender with no deformity. No lesions are appreciated. 05:43 Abdomen/GI: Soft, non-tender, with normal bowel sounds. No distension or tympany. No guarding or rebound. No evidence of tenderness throughout. Skin: Warm, dry with normal turgor. Normal color with no rashes, no lesions, and no evidence of cellulitis. MS/ Extremity: Pulses equal, no cyanosis. Neurovascular intact. Full, normal range of motion. Neuro: Awake and alert, GCS 15, oriented to person, place, time, and situation. Cranial nerves II-XII grossly intact. Motor strength 5/5 in all extremities. Sensory grossly intact. Cerebellar exam normal. Normal gait. 05:43 Constitutional: The patient appears alert, awake. 05:43 Constitutional: The patient appears uncomfortable. 05:43 Cardiovascular: Rate: tachycardic, Rhythm: regular, Pulses: no pulse deficits are appreciated. 05:43 ECG was reviewed by the Attending Physician. 05:43 Respiratory: the patient does not display signs of respiratory distress, Respirations: normal, Breath sounds: rales, that are mild, are located in both bases. 05:43 Back: CVA tenderness, that is moderate, is noted on the left. Vital Signs: 01/18 22:23 BP 156 / 95; Pulse 108; Resp 16 S; Temp 99.3(O); Pulse Ox 90% on R/A; Weight 112.04 kg bb (R); Height 5 ft. 5 in. (165.10 cm) (R); Pain 10/10; 22:49 BP 160 / 83; Pulse 107; Resp 20; Pulse Ox 93% on 2 lpm NC; tl2 23:54 BP 143 / 82; Pulse 102; Resp 20; Pulse Ox 89% on R/A; tl2 01/19 00:58 BP 140 / 90; Pulse 117; Resp 20; Pulse Ox 93% on 2 lpm NC; tl2 02:30 BP 163 / 103; Pulse 102; Resp 20; Temp 98.8; Pulse Ox 91% on R/A; Pain 9/10; aa1 03:52 BP 145 / 80; Pulse 104; Resp 18; Pulse Ox 92% on NC; mt 04:30 BP 168 / 100; Pulse 102; Resp 18; Pulse Ox 91% on R/A; aa1 05:33 BP 169 / 89; Pulse 97; Resp 18; Temp 98.5; Pulse Ox 92% on R/A; aa1 01/18 22:23 Body Mass Index 41.10 (112.04 kg, 165.10 cm) bb MDM: 01/18 23:00 Patient medically screened. 01/19 05:43 Differential diagnosis: nephrolithiasis, pyelonephritis, UTI, ruptured AAA, dissecting gs AAA, chf. Data reviewed: vital signs, nurses notes, lab test result(s), EKG, radiologic studies. Response to treatment: the patient's symptoms have markedly improved after treatment, and as a result, I will admit patient. 01/18 23:02 Order name: Urine Microscopic Only; Complete Time: 04:40 01/18 23:02 Order name: Basic Metabolic Panel; Complete Time: 00:29 01/18 23:02 Order name: CBC with Diff; Complete Time: 00:29 01/18 23:02 Order name: LFT's; Complete Time: 00:29 01/18 23:02 Order name: Magnesium; Complete Time: 00:29 01/18 23:02 Order name: NT PRO-BNP; Complete Time: 00:29 01/18 23:02 Order name: PT-INR; Complete Time: 00:29 01/18 23:02 Order name: Troponin (emerg Dept Use Only); Complete Time: 00:29 01/18 23:02 Order name: XRAY Chest (1 view) 01/18 23:02 Order name: CT Aorta for Dissection; Complete Time: 04:13 01/19 00:28 Order name: Urine Dipstick--Ancillary (enter results); Complete Time: 04:13 mw2 01/19 04:15 Order name: Urine Culture EDMD 01/18 23:02 Order name: Urine Dipstick-Ancillary (obtain specimen); Complete Time: 02:17 01/18 23:02 Order name: EKG; Complete Time: 23:03 01/18 23:02 Order name: Cardiac monitoring; Complete Time: 23:36 01/18 23:02 Order name: EKG - Nurse/Tech; Complete Time: 23:36 01/18 23:02 Order name: IV Saline Lock; Complete Time: 23:16 01/18 23:02 Order name: Labs collected and sent; Complete Time: 23:16 01/18 23:02 Order name: O2 Per Protocol; Complete Time: 23:16 01/18 23:02 Order name: O2 Sat Monitoring; Complete Time: 23:16 gs EC:43 Rate is 102 beats/min. Rhythm is regular. WI interval is normal. QRS interval is gs normal. Q waves are Old. T waves are Normal. No ST changes noted. Clinical impression: Abnormal EKG without significant change. Interpreted by me. Administered Medications: 01/18 23:52 Drug: fentaNYL (PF) 50 mcg Route: IVP; Site: right antecubital; tl2 01/19 00:30 Follow up: Response: No adverse reaction; Pain is unchanged, physician notified aa1 01:01 Drug: fentaNYL (PF) 50 mcg Route: IVP; Site: right antecubital; aa1 02:00 Follow up: Response: No adverse reaction; Pain is unchanged, physician notified aa1 01:02 Drug: Magnesium Sulfate 2 grams Route: IVPB; Infused Over: 2 hrs; Site: right aa1 antecubital; 03:00 Follow up: IV Status: Completed infusion; IV Intake: 50ml aa1 01:02 Not Given (Patient Refused): Albuterol 2.5 mg Inhalation once aa1 01:02 Not Given (Patient Refused): AtroVENT Aerosol 0.5 mg Inhalation once aa1 04:35 Drug: TORadol - Ketorolac 15 mg Route: IVP; Site: right antecubital; aa1 06:03 Follow up: Response: No adverse reaction; Pain is decreased aa1 Disposition: 01/19/19 04:39 Hospitalization ordered by Margie Moreno for Inpatient Admission. Preliminary diagnosis is Hydronephrosis with renal and ureteral calculous obstruction. - Bed requested for Telemetry/MedSurg (Inpatient). - Status is Inpatient Admission. aa1 - Condition is Stable. - Problem is chronic. - Symptoms have improved. UTI on Admission? Yes Signatures: Dispatcher [employer] EDMS Nadia Haley RN RN aa1 Micheline Dye RN RN bb Sonja Flores RN RN cg Annette Worrell RN RN 2 Patel Bertrand MD MD Corrections: (The following items were deleted from the chart) 05:19 04:39 Hospitalization Ordered by Margie Moreno MD for Inpatient Admission. Preliminary cg diagnosis is Hydronephrosis with renal and ureteral calculous obstruction. Bed requested for Telemetry/MedSurg (Inpatient). Status is Inpatient Admission. Condition is Stable. Problem is chronic. Symptoms have improved. UTI on Admission? Yes. 06:04 05:19 01/19/2019 04:39 Hospitalization Ordered by Margie Moreno MD for Inpatient aa1 Admission. Preliminary diagnosis is Hydronephrosis with renal and ureteral calculous obstruction. Bed requested for Telemetry/MedSurg (Inpatient). Status is Inpatient Admission. Condition is Stable. Problem is chronic. Symptoms have improved. UTI on Admission? Yes. cg
--- NOTE | 2019-01-19 04:40 | ER ---
Nurse's Notes [facility] Name: Gamaliel Myers Age: 58 yrs Sex: Female : 1960 Arrival Date: 01/18/2019 Time: 22:00 Bed 7 Private MD: Diagnosis: Hydronephrosis with renal and ureteral calculous obstruction Presentation: 01/18 22:19 Presenting complaint: Patient states: she is having left sided pain and into her bb abdomen which has worsened today pt does have past history of kidney stones denies dysuria pain is 10/10 and constant. Transition of care: patient was not received from another setting of care. Onset of symptoms was January 18, 2019. Risk Assessment: Do you want to hurt yourself or someone else? Patient reports no desire to harm self or others. Initial Sepsis Screen: Does the patient meet any 2 criteria? No. Patient's initial sepsis screen is negative. Does the patient have a suspected source of infection? No. Patient's initial sepsis screen is negative. Care prior to arrival: None. 22:19 Method Of Arrival: Ambulatory bb 22:19 Acuity: DEVENDRA 3 bb Historical: - Allergies: 22:23 No Known Allergies; bb - Home Meds: 22:23 amlodipine 5 mg tab 1 tab once daily [Active]; fluoxetine 20 mg Oral cap 1 cap once bb daily [Active]; garlic 1,000 mg Oral cap daily [Active]; glimepiride 4 mg Oral tab twice a day [Active]; levothyroxine 112 mcg tab 1 tab once daily [Active]; lisinopril 20 mg Oral tab 1 tab once daily [Active]; metformin 1,000 mg Oral tab 1 tab 2 times per day [Active]; zolpidem 10 mg oral tab 1 tab once daily [Active]; Vitamin D3 1,000 unit Oral tab daily [Active]; - PMHx: 22:23 Anxiety; Diabetes - NIDDM; Hyperlipidemia; Hypertension; Hypothyroidism; insomnia; bb - PSHx: 22:23 heart cath; bilateral thumb sx; Knee surgery; Hernia repair; Cholecystectomy; bb Hysterectomy; L kidney stent; - Immunization history:: Adult Immunizations up to date. - Social history:: Smoking status: Patient/guardian denies using tobacco, Patient/guardian denies using alcohol, street drugs. - Ebola Screening: : No symptoms or risks identified at this time. Screenin:30 Abuse screen: Denies threats or abuse. Denies injuries from another. Nutritional aa1 screening: No deficits noted. Tuberculosis screening: No symptoms or risk factors identified. Fall Risk None identified. Assessment: 22:30 General: Appears in no apparent distress. uncomfortable, Behavior is calm, cooperative, aa1 appropriate for age. Pain: Complains of pain in abdomen Pain currently is 10 out of 10 on a pain scale. Pain began several days ago. Neuro: Level of Consciousness is awake, alert, obeys commands, Oriented to person, place, time, situation, Moves all extremities. Full function Gait is steady, Speech is normal. Cardiovascular: Heart tones S1 S2 present Rhythm is regular. Respiratory: Airway is patent Respiratory effort is even, unlabored, Respiratory pattern is regular, symmetrical. GI: Abdomen is distended, Bowel sounds present X 4 quads. Abdomen is tender to palpation X 4 quads. Reports lower abdominal pain, upper abdominal pain, bloating, Patient currently denies diarrhea, vomiting. : No signs and/or symptoms were reported regarding the genitourinary system. EENT: No signs and/or symptoms were reported regarding the EENT system. Derm: Skin is intact, is healthy with good turgor, Skin is pink, warm \T\ dry. Musculoskeletal: Circulation, motion, and sensation intact. Capillary refill < 3 seconds. 23:30 Reassessment: Patient appears in no apparent distress at this time. Patient and/or aa1 family updated on plan of care and expected duration. Pain level reassessed. Patient is alert, oriented x 3, equal unlabored respirations, skin warm/dry/pink. Awaiting lab results. 01/19 00:45 Reassessment: Patient appears in no apparent distress at this time. Patient and/or aa1 family updated on plan of care and expected duration. Pain level reassessed. Patient is alert, oriented x 3, equal unlabored respirations, skin warm/dry/pink. Awaiting CT scan. 01:55 Reassessment: Patient appears in no apparent distress at this time. Patient is alert, aa1 oriented x 3, equal unlabored respirations, skin warm/dry/pink. Pt taken to CT at this time. 02:30 Reassessment: Patient appears in no apparent distress at this time. Patient and/or aa1 family updated on plan of care and expected duration. Pain level reassessed. Patient is alert, oriented x 3, equal unlabored respirations, skin warm/dry/pink. Pt back from CT, Reports pain medication has not helped, Dr. Bertrand notified. No new orders received. 03:30 Reassessment: Patient appears in no apparent distress at this time. Patient and/or aa1 family updated on plan of care and expected duration. Pain level reassessed. Patient is alert, oriented x 3, equal unlabored respirations, skin warm/dry/pink. Awaiting CT results. 04:18 Reassessment: Patient appears in no apparent distress at this time. Patient and/or aa1 family updated on plan of care and expected duration. Pain level reassessed. Patient is alert, oriented x 3, equal unlabored respirations, skin warm/dry/pink. Dr. Bertrand at bedside discussing results with pt. 05:42 Reassessment: Patient appears in no apparent distress at this time. Patient and/or aa1 family updated on plan of care and expected duration. Pain level reassessed. Patient is alert, oriented x 3, equal unlabored respirations, skin warm/dry/pink. Attempted to call report to 4th floor; was told nurse is unavailable and will call back. 05:50 Reassessment: Report given to Yessica on 4th floor. aa1 Vital Signs: 01/18 22:23 BP 156 / 95; Pulse 108; Resp 16 S; Temp 99.3(O); Pulse Ox 90% on R/A; Weight 112.04 kg bb (R); Height 5 ft. 5 in. (165.10 cm) (R); Pain 10/10; 22:49 BP 160 / 83; Pulse 107; Resp 20; Pulse Ox 93% on 2 lpm NC; tl2 23:54 BP 143 / 82; Pulse 102; Resp 20; Pulse Ox 89% on R/A; tl2 01/19 00:58 BP 140 / 90; Pulse 117; Resp 20; Pulse Ox 93% on 2 lpm NC; tl2 02:30 BP 163 / 103; Pulse 102; Resp 20; Temp 98.8; Pulse Ox 91% on R/A; Pain 9/10; aa1 03:52 BP 145 / 80; Pulse 104; Resp 18; Pulse Ox 92% on NC; mt 04:30 BP 168 / 100; Pulse 102; Resp 18; Pulse Ox 91% on R/A; aa1 05:33 BP 169 / 89; Pulse 97; Resp 18; Temp 98.5; Pulse Ox 92% on R/A; aa1 01/18 22:23 Body Mass Index 41.10 (112.04 kg, 165.10 cm) bb ED Course: 01/18 22:00 Patient arrived in ED. es 22:21 Triage completed. bb 22:23 Arm band placed on Patient placed in an exam room, on a stretcher, on pulse oximetry. bb Family accompanied patient. 22:30 Patient has correct armband on for positive identification. Bed in low position. Call aa1 light in reach. ekg monitor tech on. Pulse ox on. NIBP on. 22:36 Patel Bertrand MD is Attending Physician. gs 22:39 Inserted saline lock: 22 gauge in right antecubital area, using aseptic technique. tl2 Blood collected. 23:29 XRAY Chest (1 view) In Process Unspecified. EDMS 23:52 Notified ED physician of a critical lab result(s). mag 1.3. la1 01/19 01:01 Nadia Haley RN is Primary Nurse. aa1 02:51 CT Aorta for Dissection In Process Unspecified. EDMS 04:38 Margie Moreno MD is Hospitalizing Provider. gs 05:36 No provider procedures requiring assistance completed. Patient admitted, IV remains in aa1 place. Administered Medications: 01/18 23:52 Drug: fentaNYL (PF) 50 mcg Route: IVP; Site: right antecubital; tl2 01/19 00:30 Follow up: Response: No adverse reaction; Pain is unchanged, physician notified aa1 01:01 Drug: fentaNYL (PF) 50 mcg Route: IVP; Site: right antecubital; aa1 02:00 Follow up: Response: No adverse reaction; Pain is unchanged, physician notified aa1 01:02 Drug: Magnesium Sulfate 2 grams Route: IVPB; Infused Over: 2 hrs; Site: right aa1 antecubital; 03:00 Follow up: IV Status: Completed infusion; IV Intake: 50ml aa1 01:02 Not Given (Patient Refused): Albuterol 2.5 mg Inhalation once aa1 01:02 Not Given (Patient Refused): AtroVENT Aerosol 0.5 mg Inhalation once aa1 04:35 Drug: TORadol - Ketorolac 15 mg Route: IVP; Site: right antecubital; aa1 06:03 Follow up: Response: No adverse reaction; Pain is decreased aa1 Intake: 03:00 IV: 50ml; Total: 50ml. aa1 Outcome: 04:39 Decision to Hospitalize by Provider. 06:03 Admitted to Med/surg accompanied by tech, family with patient, via wheelchair, room aa1 428, with chart, Report called to VEE Juan 06:03 Condition: stable 06:03 Instructed on the need for admit, Demonstrated understanding of instructions. 06:04 Patient left the ED. aa1 Signatures: Dispatcher [employer] Nadia Dominique RN RN aa1 Sharyn White Brenda, RN RN bb Daniel Bowles RN RN la1 Annette Worrell RN RN tl2 Lizbeth Soto mt, Gregory, MD MD
[2019-01-19] MEDS ORDERED: KETOROLAC 30 MG/ML INJ ONE (04:42)
--- NOTE | 2019-01-19 05:11 | P.HP ---
Certification for Inpatient Patient admitted to: Observation With expected LOS: <2 Midnights Practitioner: I am a practitioner with admitting privileges, knowledge of patient current condition, hospital course, and medical plan of care. Services: Services provided to patient in accordance with Admission requirements found in Title 42 Section 412.3 of the Code of Federal Regulations Patient History Date of Service: 01/19/19 Reason for admission: obstructive nephrolithiasis History of Present Illness: Ms Myers is a 58 years old woman with history of DM II, HTN, hypothyroidism, who was admitted in 10/18 due to obstructive nephrolithiasis, at that time it was found a 12 mm stone on the midpole of the left kidney requiring a stent placement. She has been doing well until yesterday about 1800, when she start having severe pain on her left flank, radiated to the left lower quadrant and pubic area, 10/10 of intensity, constant, associated with nausea but no vomiting. Lab work in ED shows leukocytosis, 12.3K, low magnesium, abnormal renal function, and abnormal UA. She had a CT dissection in ER, which shows no aortic dissection but a 12 mm obstructive stone on the left renal pelvis. The patient temp is 99.3, HR 103, BP 156/95. Allergies No Known Allergies Allergy (Unverified 04/09/18 03:45) Home medications list reviewed: Yes Home Medications: Cephalexin [Keflex] 500 mg PO DAILY #30 cap 10/04/18 Oxybutynin Chloride [Oxybutynin Chloride ER] 10 mg PO DAILY PRN #10 tab.er.24 Potassium Citrate [Urocit-K] 15 meq PO BID #60 tablet.er 10/04/18 traMADol HCL [Ultram] 50 mg PO Q6H PRN #20 tab 10/04/18 - Past Medical/Surgical History -: nephrolithiasis -: hydronephrosis -: DM II -: HTN -: hypothyroidism -: ; bilateral thumb sx; Knee surgery; Hernia repair; Cholecystectomy; - Family History Family History: Reviewed- Non-Contributory - Social History Smoking Status: Former smoker Alcohol use: Yes CD- Drugs: No Caffeine use: No Place of Residence: Home Review of Systems 10-point ROS is otherwise unremarkable Physical Examination - Physical Exam General: Alert, In no apparent distress HEENT: Atraumatic, PERRLA, Mucous membr. moist/pink, EOMI, Sclerae nonicteric Neck: Supple, 2+ carotid pulse no bruit, No LAD, Without JVD or thyroid abnormality Respiratory: Clear to auscultation bilaterally, Normal air movement Cardiovascular: Regular rate/rhythm, Normal S1 S2 Gastrointestinal: Normal bowel sounds, Tenderness (LLQ, left flank, left CVA ) Musculoskeletal: No tenderness Integumentary: No rashes Neurological: Normal gait, Normal speech, Normal strength at 5/5 x4 extr, Normal tone, Normal affect Lymphatics: No axilla or inguinal lymphadenopathy - Studies Laboratory Data (last 24 hrs) 01/18/19 23:00: PT 10.7, INR 0.90 01/18/19 23:00: WBC 12.3 H, Hgb 13.8, Hct 42.1, Plt Count 208 01/18/19 23:00: Sodium 146 H, Potassium 4.3, BUN 20 H, Creatinine 1.15, Glucose 189 H, Magnesium 1.3 L*, Total Bilirubin 0.3, AST 15, ALT 21, Alkaline Phosphatase 75 Assessment and Plan - Problems (Diagnosis) (1) Hydronephrosis concurrent with and due to calculi of kidney and ureter Current Visit: Yes Status: Acute (2) HTN (hypertension) Current Visit: Yes Status: Acute Qualifiers: Hypertension type: essential hypertension Qualified Code(s): I10 - Essential (primary) hypertension (3) Diabetes mellitus Current Visit: Yes Status: Acute Qualifiers: Diabetes mellitus type: type 2 Diabetes mellitus assisted insulin use: without assisted use Diabetes mellitus complication status: with unspecified complications Qualified Code(s): E11.8 - Type 2 diabetes mellitus with unspecified complications (4) Pyelonephritis Current Visit: Yes Status: Acute - Plan The patient will be admitted to the hospital due to obstructive large stone on her left renal pelvis, leading with moderate hydronephrosis. Dr Munoz has been notified and he will see the patient in AM. Will start empiric antibiotics, since CT showed perirenal stranding. NPO, IV fluids, symptomatic medication. - Advance Directives Does patient have a Living Will: No Does patient have a Durable POA for Healthcare: No - Code Status/Comfort Care Code Status Assessed: Yes Code Status: Full Code
[2019-01-19] MEDS: INSULIN -REGULAR HUMAN 50 UNIT/0.5 ML ML SQ SCH ×3 (06:12→18:00)
[2019-01-19] MEDS ORDERED: ONDANSETRON 4 MG/2 ML VIAL IV PRN (06:12)
[2019-01-19] MEDS: NA CHLORIDE 0.9% 1,000 ML IV SCH ×2 (06:45→16:32)
[2019-01-19] MEDS ORDERED: CEFTRIAXONE 1 GM/NS 50 ML 1 GM/50 ML BAG IV SCH (07:00)
--- NOTE | 2019-01-19 07:44 | EKG ---
Test Date: 2019-01-18 Test Time: 23:28:54 Entry Level Mechanical Engineer: ASHLI MEASUREMENT RESULTS: Intervals: Rate: 97 AZ: 164 QRSD: 80 QT: 376 QTc: 477 Delton: P: 8 AZ: 164 QRS: 72 T: 39 INTERPRETIVE STATEMENTS: Normal sinus rhythm Low voltage QRS Septal infarct, age undetermined Abnormal ECG Compared to ECG 10/08/2018 07:15:16 Low QRS voltage now present Sinus tachycardia no longer present Right-axis deviation no longer present Myocardial infarct finding still present Electronically Signed On 01-19-19 07:43:35 CDT by Jacob Martinez
[2019-01-19] MEDS: CEFTRIAXONE/SWI 1gm 1 GM/10 ML SYR IV SCH (08:04)
[2019-01-19] MEDS: KETOROLAC 30 MG/ML INJ IV PRN (08:05)
--- NOTE | 2019-01-19 08:14 | RAD REPORT ---
EXAM DESCRIPTION: RAD - Chest Single View - 01/18/2019 11:31 pm CLINICAL HISTORY: Chest pain, abdominal pain COMPARISON: October 08, 2018 TECHNIQUE: AP portable chest image was obtained 2325 hours . FINDINGS: No peripheral mass or consolidation. Interstitial pattern is not clearly different from co mparison. Failure and volume overload are not suspected. Baseline interstitial pattern could mask elvis ma or infiltrate. Heart and vasculature are normal. No measurable pleural effusion and no pneumothora x. No acute bony abnormality seen. No acute aortic findings suspected. IMPRESSION: No large mass or focal consolidation. Lung markings are mildly prominent but not clearly different. Early or mild interstitial edema or inf iltrate could be masked.
--- NOTE | 2019-01-19 09:46 | RAD REPORT ---
EXAM DESCRIPTION: RAD - Abdomen 1 View (KUB) - 01/19/2019 9:02 am CLINICAL HISTORY: Left-sided kidney stone COMPARISON: CT study January 19 FINDINGS: Dense left nephrogram persists. Left-sided hydronephrosis is present to the UPJ. Contrast is present within the dilated pelvis and calices. No contrast confirmed more distally in the left ure ter. The opacified collecting system abruptly stops at the UPJ which would indicate the stone is stil l present at that location. Contrast is present in nondilated right collecting system and urinary bladder. Bowel gas pattern is nonspecific. No obstruction or free air. Bony degenerative changes are present without acute finding. IMPRESSION: Obstructing calculus is still present at the left UPJ. Dilated, contrast opacified pelvi s and calices noted proximal to the stone as well as a persistent dense left nephrogram.
[2019-01-19] MEDS: HYDROCODONE/APAP 5/325 MG TAB PO PRN ×2 (10:41→16:32)
--- NOTE | 2019-01-19 12:24 | CON ---
History Of Present Illness: 58-year-old lady with a history of kidney stones, diabetes type 2, hyper tension, hypothyroidism, who was admitted in September for cysto stent placement. At that time, the st one was difficult to be seen. It was thought it may be a uric acid stone. The stent was placed and she was placed on uric acid stone dissolving medicine. However, she had a stent removed in the emerg ency room by someone; believes she followed up with me. Now she comes in with pain in that site; sev ere pain, slight leukocytosis of 4.3, low magnesium and had a CAT scan done DICTATION ENDS HERE PB/MODNicko Voice ID: [id number] Report ID: [id number]
--- NOTE | 2019-01-19 15:09 | PN ---
Date of Progress Note: 01/19/2019 Subjective: The patient seen and examined, chart reviewed and case discussed with RN. The patient will be going for lithotripsy in a.m. as the machine is not available today. Medications: List reviewed. Physical Examination: Vital Signs: Temperature 98.1, heart rate 87, blood pressure 167/74, respirations 16, O2 93% on room air. General: Awake, alert, oriented x3, in some mild distress due to pain. Appears older than stated age. Morbidly obese, BMI 41.1. CV: S1, S2. Regular rate and rhythm. Peripheral pulses present. Respiratory: Moving air well bilaterally. No wheezing or stridor. No use of accessory muscles. Gastrointestinal: Abdomen is soft, nontender, nondistended. Positive bowel sounds. The patient has left flank tenderness and CVA tenderness. Extremities: No clubbing, cyanosis, or edema. Neurologic: Nonfocal. Laboratory Data: Glucose 178. Blood culture and urine culture pending. KUB shows obstructing calculus present in the left UPJ. Assessment: A 58-year-old female with: 1. Hydronephrosis concurrent with and due to calculi of kidney and ureter. We will continue with IV fluids, pain control. The patient is scheduled for lithotripsy once machine is available in a.m. Dr. Munoz is on board. 2. Essential hypertension. We will resume home medications as appropriate. 3. Diabetes mellitus type 2 without long-term use of insulin with hyperglycemia. We will continue sliding scale insulin. Monitor Accu-Cheks. 4. Pyelonephritis. 5. Thyroid nodule 16 mm in the right side. We will obtain thyroid ultrasound. The patient will likely need outpatient ENT followup and FNA depending on ultrasound results. 6. Morbid obesity. BMI 41.1. Plan: As above. /EMELY Voice ID: [id number] Report ID: [id number] GRETA
--- NOTE | 2019-01-19 19:44 | RAD REPORT ---
EXAM DESCRIPTION: US - Thyroid Para Parotid Gland - 01/19/2019 7:09 pm CLINICAL HISTORY: Thyroid nodule COMPARISON: Angio Aorta For Dissection dated 01/19/2019 FINDINGS: The isthmus of the thyroid measures 7 mm. The right lobe of the thyroid measures 5.2 x 2.8 x 1.7 cm. The left lobe of the thyroid measures 4.2 x 2.3 x 1.4 cm. Nodules: Isthmus: None. Right Lobe: Heterogenous 2.1 x 2.0 x 1.8 cm nodule inferior pole. Left Lobe: Circumscribed mildly echogenic mid lobe 0.8 x 0.8 cm nodule. Mildly echogenic inferiorly located 1.6 x 1.3 cm circumscribed nodule. Echogenic 4 mm nodule mid lobe. IMPRESSION: Mild nodular thyroid goiter as detailed.
[2019-01-19] MEDS ORDERED: ZOLPIDEM TARTRATE 5 MG TABLET PO SCH (21:00)
[2019-01-19] MEDS: GLIMEPIRIDE 2 MG TABLET PO SCH (22:14)
[2019-01-20] MEDS: NA CHLORIDE 0.9% 1,000 ML IV SCH ×2 (02:59→12:12)
[2019-01-20] MEDS: HYDROCODONE/APAP 5/325 MG TAB PO PRN (03:02)
[2019-01-20] MEDS: INSULIN -REGULAR HUMAN 50 UNIT/0.5 ML ML SQ SCH ×4 (06:00→18:00)
[2019-01-20] MEDS ORDERED: LEVOTHYROXINE SOD 0.112 MG TAB PO SCH (06:30)
[2019-01-20 06:33] LABS: Absolute Lymphocytes (CBC) 4.6 K/uL (0.7-4.9); Absolute Monocytes 0.6 K/uL (0.1-1.3); Absolute Neutrophil 6.2 K/uL (1.8-8.0); Basophils % 0.8 % (0-1.3); Hematocrit 39.7 % (36.0-45.0); Lymphocytes % 39.7 % (15.3-44.8); MPV 10.7 fL (7.6-11.3); Monocytes % 5.2 % (3.3-12.3); RBC Red Blood Cell Count 4.54 M/uL (3.86-4.86)
[2019-01-20 06:44] LABS: Potassium 4.2 mmol/L (3.5-5.1)
[2019-01-20] MEDS ORDERED: AMLODIPINE 5 MG TAB PO SCH (09:00)
[2019-01-20] MEDS ORDERED: MAGNESIUM SULFATE 1 gm IVPB 1 GM/100 ML BAG IV ONE (09:00)
[2019-01-20] MEDS: GLIMEPIRIDE 2 MG TABLET PO SCH (09:00)
[2019-01-20] MEDS ORDERED: FLUOXETINE 20 MG CAP PO SCH (09:00)
[2019-01-20] MEDS: KETOROLAC 30 MG/ML INJ IV PRN (09:06)
[2019-01-20] MEDS: CEFTRIAXONE/SWI 1gm 1 GM/10 ML SYR IV SCH (09:07)
[2019-01-20] MEDS ORDERED: NA CHLORIDE 0.9% 1,000 ML ONE (12:40)
[2019-01-20] MEDS ORDERED: PROPOFOL 200 MG/20 ML VIAL IV ONE ×2 (13:06→13:58)
[2019-01-20] MEDS ORDERED: FENTANYL CITR 100 MCG/2 ML ONE (13:07)
[2019-01-20] MEDS ORDERED: MIDAZOLAM HCL 2 MG/2 ML INJ ONE (13:07)
[2019-01-20] MEDS ORDERED: ONDANSETRON 4 MG/2 ML VIAL ONE (13:07)
[2019-01-20] MEDS ORDERED: LIDOCAINE 2% MPF 5 ML VIAL ONE (13:07)
[2019-01-20] MEDS ORDERED: Phenylephrine HCl 10 MG/ML 1 ML VIAL ONE (13:47)
--- NOTE | 2019-01-20 16:53 | P.SSS ---
Patient History Date of Service: 01/20/19 Reason for admission: obstructive nephrolithiasis History of Present Illness: Ms Myers is a 58 years old woman with history of DM II, HTN, hypothyroidism, who was admitted in 10/18 due to obstructive nephrolithiasis, at that time it was found a 12 mm stone on the midpole of the left kidney requiring a stent placement. She has been doing well until yesterday about 1800, when she start having severe pain on her left flank, radiated to the left lower quadrant and pubic area, 10/10 of intensity, constant, associated with nausea but no vomiting. Lab work in ED shows leukocytosis, 12.3K, low magnesium, abnormal renal function, and abnormal UA. She had a CT dissection in ER, which shows no aortic dissection but a 12 mm obstructive stone on the left renal pelvis. The patient temp is 99.3, HR 103, BP 156/95 Allergies No Known Allergies Allergy (Verified 01/19/19 06:31) Home medications list reviewed: Yes Home Medications: Amlodipine [Norvasc*] 1 tab PO DAILY 01/19/19 Cholecalciferol (Vitamin D3) [Vitamin D3] 1 cap PO DAILY 01/19/19 Fluoxetine HCl [Prozac] 1 cap PO DAILY 01/19/19 Garlic 1 cap PO DAILY 01/19/19 Glimepiride 1 tab PO BID 01/19/19 Levothyroxine [Synthroid*] 1 tab PO DAILY 01/19/19 Metformin HCl 1 tab PO BID 01/19/19 Zolpidem Tartrate 1 tab PO DAILY 01/19/19 Cephalexin [Keflex] 500 mg PO Q12H 7 Days #14 cap 01/20/19 Docusate Calcium [Surfak] 240 mg PO BID 7 Days cap 01/20/19 Hydrocodone 10/APAP 325 [[place] 10/325*] 1 tab PO Q8H PRN #21 tab 01/20/19 Oxybutynin Chloride 5 mg PO TID 7 Days #21 tablet 01/20/19 traMADol HCL [Ultram] 50 mg PO Q6H PRN 7 Days #28 tab 01/20/19 - Past Medical/Surgical History Has patient received pneumonia vaccine in the past: No Diabetic: Yes -: nephrolithiasis -: hydronephrosis -: DM II -: HTN -: hypothyroidism -: ; bilateral thumb sx; Knee surgery; Hernia repair; Cholecystectomy; - Family History Family History: Reviewed- Non-Contributory - Family History Father Notes: CHF Mother -: Cancer Brother Notes: Heart Transplant - Social History Smoking Status: Former smoker Alcohol use: No CD- Drugs: No Caffeine use: Yes Place of Residence: Home Review of Systems 10-point ROS is otherwise unremarkable Physical Examination - Vital Signs Temperature: 98.1 F Blood Pressure: 126/61 Pulse: 95 Respirations: 16 Pulse Ox (%): 85 - Physical Exam General: Alert, In no apparent distress, Oriented x3 HEENT: Atraumatic, PERRLA, Mucous membr. moist/pink, EOMI, Sclerae nonicteric Neck: Supple, 2+ carotid pulse no bruit, No LAD, Without JVD or thyroid abnormality Respiratory: Clear to auscultation bilaterally, Normal air movement Cardiovascular: Regular rate/rhythm, Normal S1 S2 Gastrointestinal: Normal bowel sounds, No tenderness Musculoskeletal: No tenderness Integumentary: No rashes Neurological: Normal gait, Normal speech, Normal strength at 5/5 x4 extr, Normal tone, Normal affect Lymphatics: No axilla or inguinal lymphadenopathy - Studies Microbiology Data (last 24 hrs): 01/19/19 02:30 Clean Catch Urine Foley Count - Final BETWEEN 10,000 & 100,000 CFU/ML 01/19/19 02:30 Clean Catch Urine - Final MIXED TANNER. Treatment Summary: Patient was admitted. Urology was consulted. She did have hydronephrosis concur with calculi of the kidney and ureter on the left side. She underwent a lithotripsy with Dr. saldivar. No stent placement was required. She tolerated the procedure well. She was discharged home on oral antibiotics, oxybutynin, and pain control medications. She will follow up with Dr. Saldivar in 1 week. She was found to have a thyroid nodule, 16 mm on the right side of her CT imaging. A thyroid ultrasound was done which did show a right lobe nodule along with mild goiter. Discussed results with patient and she understands that she will need outpatient ENT followup and possible FNA as an outpatient. She states that she does not have insurance at this time and a she is currently working on it. But she understand this support and she will follow up for this as an outpatient. She otherwise remained stable throughout the stay. Treatment plan and diagnoses were discussed with patient. All questions were answered. She verbalized understanding and was discharged home in a safe and stable manner. She will follow up with her primary care physician in 2-3 days and urology in 1 week. - Disposition Discharge Date: 01/20/19 Disposition: ROUTINE DISCHARGE Condition: GOOD Consultations: Urology, Dr. Saldivar Patient Discharge Instructions: Please follow up with the primary care physician in 2-3 days. Please follow up with urology, Dr. Saldivar in 1 week. We would recommend you follow up/discussed the thyroid nodule that was incidentally found on your ultrasound with the primary care physician for further management. You may need an ENT referral from your primary care physician for this. Diet: ADA Activity: Ad abdirashid Time Spent Managing Pts Care (In Minutes): 55
--- NOTE | 2019-01-29 19:07 | CON ---
Date of Consultation: 01/19/2019 History Of Present Illness: Pleasant 58-year-old lady with a history of diabetes type 2, hypertensio n, hypothyroidism, and was admitted prior with a 12 mm stone in UPJ of the kidney. She had a stent p laced. She was told to follow up, but never followed up. She had her stent removed in the ER. Now she is back in pain from this 12 mm stone in the left renal pelvis UPJ area. She is stable. She yinka l need shockwave lithotripsy. Allergies: NO KNOWN DRUG ALLERGIES. Medications: Medication list reviewed. Home medications: Keflex, oxybutynin, potassium citrate, tra madol Past Medical History: 1.Nephrolithiasis. 2.Hydronephrosis. 3.Diabetes type 2. 4.Hypertension. 5.Hypothyroidism. 6.Bilateral thumb surgery. 7.Knee surgery. 8.Hernia surgery. 9.Cholecystectomy. Family History: Noncontributory. Social History: Former smoker. Alcohol usage. Caffeine use no. Resides at home. Review of Systems: Ten-point review of systems unremarkable. Physical Examination: HEENT: Atraumatic. Normocephalic. General: Alert, in no apparent distress. Neck: Supple. Respiratory: Clear bilaterally. Cardiovascular: S1, S2 normal. Gastrointestinal: Normal bowel sounds. No rebound, no acute abdomen. Musculoskeletal: Nontender. Skin: No rashes. Neurologic: Normal gait. Normal speech. Sensory and motor grossly intact. Lymphatics: No lymphaden opathy. Laboratory Studies: Reviewed. Coagulation is normal. White count 12.3, H and H 13.8 and 42.1, plat elets 208. Chemistry; sodium 146, potassium 4.3, BUN 20, creatinine 1.15, glucose 189, magnesium 1.3 low, total bilirubin 0.3, AST 50, ALT 21, alkaline phosphatase 75. Assessment: Left ureteropelvic junction stone. Plan: Plan for left ESWL. The patient has a history of hypertension, diabetes. The patient knows a ll the general information, alternatives, and risks and wishes to proceed. Thank you very much. JENNA/EMELY Voice ID: [id number] Report ID: [id number]
== END 2019-01-20 18:05 | disposition home or self-care (01) ==
LOC: ER 21:56 → ERHOLD 01-19 05:00 → 4TH 01-19 05:52
PROVIDERS: ADMIT Internal Medicine; ATTEND Internal Medicine
PROC: 0TF7XZZ Fragmentation in Left Ureter, External Approach (ICD-10-PCS; principal; 2019-01-20 12:00)
DX: N13.6 Pyonephrosis (principal); E11.9 Type 2 diabetes mellitus without complications; I10 Essential (primary) hypertension; E03.9 Hypothyroidism, unspecified; E04.1 Nontoxic single thyroid nodule; E66.01 Morbid (severe) obesity due to excess calories; Z68.41 Body mass index [BMI] 40.0-44.9, adult
CPT/HCPCS: 36415; 50590; 71045; 71275; 74018; 74175; 76536; 80048; 80076; 81003; 81015; 82962; 83735; 83880; 84484; 85025; 85610; 87040; 87086; 87088; 93005; 96365; 96366; 96375; 99285; G0378; J0696; J2250; J2370; J2405; J2704; J3010; J3475; J7030; Q9967